=== PATIENT | male | born 1950 | race Caucasian/White ===

== ENCOUNTER → 2017-11-24 15:40 | Outpatient (CLI) | payer OTHER, SELFPAY ==
--- NOTE | 2017-11-24 | DI.US.S_ITS ---
PROCEDURE: US PERIPH VENOUS LOW EXTREM LT INDICATIONS: LEFT LEG SWELLING TECHNIQUE: Real-time imaging, as well as color and pulse Doppler interrogation, were performed of the lower extremity deep veins from the inguinal ligament to the popliteal fossa. COMPARISON: None. FINDINGS: The deep veins are normally compressible, and free of intraluminal thrombus. Color and pulse Doppler demonstrate normal phasic intraluminal flow. There is normal augmentation response to distal compression maneuver. IMPRESSION: No DVT found. Dictated by: Marko Amaral M.D. on 11/24/2017 at 16:51 Approved by: Marko Amaral M.D. on 11/24/2017 at 16:52
== END ==
PROVIDERS: Family Provider Family Medicine; PCP Family Medicine; Visit Provider Family Medicine
DX: M79.89 Other specified soft tissue disorders (principal)
CPT/HCPCS: 93971

== ENCOUNTER 2017-12-02 08:30 | Outpatient (RCR) | payer OTHER, SELFPAY ==
[2017-08-31 10:56] VITALS: BP 112/60; O2SAT 97; BMI 39.9
--- NOTE | 2017-08-31 12:48 | CR.IEVALNOTE ---
CR Initial Assessment Report 5.8.18 CABGx2, AVR PE FARZAD Lungs, DM, Pneumonia CR Cardiac Rehab Initial Assessment Start: 08/31/17 10:54 Freq: Status: Active Protocol: Document 08/31/17 10:56 [facility] (Rec: 08/31/17 11:16 [facility] [id number]) Cardiac Rehabilitation Exercise Risk Risk Moderate % 60 AICD No Pacemaker No Heart Rhythm NSR Right Arm Blood Pressure (90/60-120/80 mmHg) 112/60 Blood Pressure Method Manual Cuff/Auscultation BP Comment: 96/64 LEFT ARM Apical Resting Heart Rate: 71 Target Heart Rate: 91 Strength: Normal Pulse Rhythm: Regular Respiratory Effort Non-Labored Respiratory Depth Normal Pulse Oximetry (91-100 %) 97 Nasal Cannula No Cardiac Rehabilitation Nutrition Evaluation Recent Lipid Blood Test Yes Date Blood Test Drawn 09/01/16 Total Cholesterol 182 Triglycerides 119 HDL 47 LDL 111 Lipid Medications Yes Goal for Lipids REDUCE LDL AND TRIGLYCERIDES History of Diabetes Yes Type Type 2 Monitors Blood Glucose Yes Frequency 3X/DAY Diabetic Medications METFORMIN Diet Controlled Yes Date/Result of HgA1C 7.1 Goals FBS 80-110 Cardiac Rehabilitation Weight Management Plan Height 170.18 cm Weight 115.666 kg Body Mass Index (BMI) 39.9 Girth Measurement (in inches) (cm) 49.5 Patient Goal(s) Lose 1-2 of Girth Lose 5-10 lbs Body Weight BMI Goal of 19-25 Vitamins & Supplements Yes Use Occasionally Nutrition Evaluation Referral to Diabetes Education No Nurse/Patient Discussion Yes Diet Discussion REVIEWED MEAL PLAN Patient's Nutritional Goals CONTINUE HIS SLOW WEIGHT LOSS Education Primary Language [place] Hearing Ability Normal Visual Impairment No Limitations Visual Difficutly None Education on Intake Chest Pain Short of Breath Tobacco Use N/A Hx Hypertension No Goal of BP <130/80 Yes Medications Reconciled Yes CR Psychosocial Evaluation Goal GAIN CONFEDENCE IN GETTING BACK TO EXERCISE. 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 WENT TO SEE DR. MENDEZ FOR HIS DIABETES AND HE HEARD A MURMU . REFERRRED TO DR. WALDRON. HAD A ANGIO AT [facility] WHERE HE HAD 100%BLOCKAGE OF PDA. TO [facility] FOR AVR AND CABG X 2. LONG SURGERY IN HOSPITAL FOR 9 DAYS. Treatment Prescribed for Individual Yes Needs No Treatment Change Yes: Please Continue with Cardiopulmonary Rehabilitation as Ordered Date 08/31/17 Document 08/31/17 12:23 [facility] (Rec: 08/31/17 12:48 [facility] [id number]) Cardiac Rehabilitation Exercise Fall Risk History of Falling (Immediate or No Previous) Secondary Diagnosis (More Than 2 Medical Yes Diagnoses) Ambulatory Aid None/bed rest/nurse assist IV/Heparin Lock No Gait/Transferring Normal/bedrest/immobile Mental Status Oriented to own ability Score Total 15 Risk Level Low Fall Risk Action Implement [place] Fall Risk Precautions Comment Will still start with saucer under physioball and next to handrail. Assistive Devices None Akbar Activity Status Index 8.33 Home Exercise Yes Mode Comment: walking- neighborhood, [place] Duration Comment: 15-30 min Frequency Comment: daily Symptoms: Joint Pain Numbness Body Alignment Posture Good Posture Ambulation Assistive Device None Orthotic/Prosthetic Devices or Brace: No Comment R shoulder pain-only since surgery, RLL numbness from prior accident. Exercise TM METS 4.12 Angina with Exercise no Exercise Tolerance Good CR Pre Exercise Evaluation Orientation Self Pulse Check ADRI PRE Scale Exercise Safety Equipment Orientation Warm Up/Cool Down Patient Short-term Goal(s) Increase stamina to complete 40 min of cardio at 5 METS continuously and not go home to take a nap. Return to walking some hills around neighborhood in 4 weeks. Patient Detention Goal(s) Lose 1-2#/wk by changing exercise and nutrition habits. Return to cycling (mountain) in 12 weeks by performing HIIT on the [place]. CR Exercises Prescription Exercise Duration (minutes) 20 METs (resistance level) 4 Frequency 2x/wk RPE 11-14 Comment sternal precautions, no arms Exercise Duration (minutes) 20 METs (resistance level) 5 Frequency 2x/wk RPE 11-14 Pounds 4 Number of Reps 12 Number of Sets 2 Frequency 1x/wk RPE 13 Comment sternal precautions-light weight unilateral movements Band Resistance 3 Number of Reps 12 Number of Sets 1 Frequency 1x/wk RPE 13 Comment sternal precautions
[2017-09-29 09:44] VITALS: BP 112/60
--- NOTE | 2017-09-29 09:52 | CR.REVALNOTE ---
CABG X 2 07/27/17 CR Initial Assessment Report CR Cardiac Rehab Re-Assessment Start: 08/31/17 10:54 Freq: Status: Active Protocol: Document 09/29/17 09:44 [facility] (Rec: 09/29/17 09:52 [facility] [id number]) Cardiac Rehab Exercise Risk Re-Eval Dx: CABG X 2 07/27/17 Risk Moderate Heart Rhythm SR Right Arm Blood Pressure (90/60-120/80 mmHg) 112/60 Blood Pressure Method Manual Cuff/Auscultation Apical Resting Heart Rate: 73 Strength: Normal Pulse Rhythm: Regular Pulse Assessment Method Pulse Ox/Monitor Achieved Exercise Re-Evaluation Treadmill MET Goal NEW GOAL 10 METS RPE 15 Weights 4 Bands 4 Equipment Goals WANTS TO TRY NEW MACHINES, TO INCLUDE ROWER, CAROL AND ELLIPTICAL Number/Value UP WEIGHTS TO 5 % Improvement 137% ON TM, 113% ON NS. 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 ON BIKE AND RIDE Cardiac Rehab Nutrition Re-Eval Lipids Re-Drawn No History of Diabetes Yes Fasting Blood Glucose 99 Oral Agents METFORMIN 1000MG BID Insulin No Relationship to CAD Yes Weight 114.759 kg Progress to Weight Goal DOWN 2# Dietary Consult No Nurse/Patient Discussion Yes Nutrition Class Yes Dietary Goal verbalized by Patient Yes Education Tobacco Use N/A Hypertension HAS BEEN TRENDING DOWN Medications METOPROLOL 12.5 BID Progress to Goal HAS BEEN AT GOAL Medication Reconciled NO CHANGES REPORTED CR Psychosocial Re-Evaluation Progress to Goal CONFIDENCE HAS BEEN BUILDING AND IS LITERALLY SMILING THE ENTIRE TIME HE IS WORKING OUT Stress Managed YES Psych Consult No Stress Management Class Yes Uses Stress Management Skills Yes Coping Techniques Yes Relaxation Techniques Yes Positive Support Yes Note NO CHANGES CR Psychosocial Provider Eval Treatment Prescribed for Individual Yes Needs No Treatment Change Yes: Please Continue with Cardiopulmonary Rehabilitation as Ordered Date 09/29/17
[2017-12-02 08:59] VITALS: BMI 38.9
[2017-12-02 11:05] VITALS: BP 120/66
== END 2017-12-06 08:33 ==
LOC: CAR 08:30
PROVIDERS: Family Provider Family Medicine; PCP Family Medicine; Visit Provider Family Medicine
DX: Z95.1 Presence of aortocoronary bypass graft (principal)
CPT/HCPCS: 93798

== ENCOUNTER 2019-02-20 13:27 | Emergency (ER) | payer OTHER, SELFPAY ==
[2019-02-20] VITALS (13 sets, daily range): BP systolic 131–184; BP diastolic 60–86; PULSE 79–93; RESP 14–34; TEMP 36.1–37.2; O2SAT 78–98
--- NOTE | 2019-02-20 13:28 | DI.CT.S_ITS ---
PROCEDURE: CT HEAD/BRAIN WO CON INDICATIONS: Code Stroke TECHNIQUE: Noncontrast 4.5 mm thick angled axial sections acquired from the foramen magnum to the vertex, with coronal and sagittal reformats. For radiation dose reduction, the following was used: automated exposure control, adjustment of mA and/or kV according to patient size. COMPARISON: None. FINDINGS: Image quality: Excellent. CSF spaces: Basal cisterns are patent. No extra-axial fluid collections. Ventricles are normal in size and shape. Brain: No midline shift. No intracranial masses or hemorrhage. Singh-white matter interface is normal. Exactly at the midline extending posterior and inferior to the posterior genu of the corpus callosum is a curvilinear radiodensity which on sagittal reformatt imaging is isodense to the adjacent dural sinuses. The appearance is that of a relatively dense dural vein rather than organized thrombus at that site. More inferiorly within the pineal gland are several small calcifications Skull and face: Calvarium and visualized facial bones are intact, without suspicious lesions. Sinuses: Visualized sinuses and mastoids are clear. IMPRESSION: The brain parenchyma appears normal bilaterally, and no hemorrhage is found. The radiodensity discussed above at the midline below the posterior genu of the corpus callosum represents a prominent dural vein as a normal anatomic variant. The emergency room physician caring for the patient was called and the findings were discussed in detail. This occurred at 13:41 in the afternoon, and he reports that the current symptomatology is more likely post-seizure status of the patient then stroke. MR scanning may be warranted regardless. Note: Findings personally called to the emergency room physician caring for the patient at 13:41. Dictated by: Marko Amaral M.D. on 02/20/2019 at 13:41 Approved by: Marko Amaral M.D. on 02/20/2019 at 13:56
[2019-02-20 13:37] LABS: Add Manual Diff / Slide Review NO; Basophils Absolute Auto 0 /uL (0-100); Basophils Percent Auto 0.4 % (0-2); Eosinophils Absolute Auto 200 /uL (0-450); Eosinophils Percent Auto 2.4 % (2-4); Hemoglobin 16.9 g/dL (13.5-17.5); Lymphocytes Absolute Auto 2100 /uL (1100-4500); Lymphocytes Percent Auto 20.7 % (25-40); Mean Corpuscular HGB Conc 33.9 % (30-36); Mean Corpuscular Hemoglobin 30.7 PG (26-34); Mean Corpuscular Volume 90.6 fL (80-100); Monocytes Absolute Auto 1000 /uL (0-900); Monocytes Percent Auto 10.4 % (3-14); Neutrophils Absolute Auto 6600 /uL (1500-7000); Neutrophils Percent Auto 66.1 % (50-75); Platelet Count 215 X10^3/uL (150-400); Red Blood Cell Count 5.52 X10^6/uL (4.5-5.9); Red Cell Distribution Width 13.6 % (11.6-14.8)
--- NOTE | 2019-02-20 13:42 | ED.NEUROSD ---
HPI - Neuro Symptoms/Deficit General Chief Complaint: Neuro Symptoms/Deficit Stated Complaint: Code Stroke Time Seen by Provider: 02/20/19 13:27 Source: EMS Mode of arrival: EMS Limitations: altered mental status History of Present Illness HPI Narrative: 68-year-old male arrived by EMS for concerns of a potential stroke. Is reported that his last known normal was 30 minutes prior to arrival here in the ER. Patient unable to provide any HPI. The history was provided by EMS who stated that they were told that the patient was acting a little different this morning but was able to get up and walk around. His reported that he was sitting in his chair when his left leg started shaking in his right arm started shaking and he was looking up to the left. Unsure how long the symptoms lasted however EMS reports that he has been essentially unresponsive in the ambulance EN route to the ER. Blood sugars greater than 100. No other interventions provided by EMS other than IV. Related Data Home Medications Medication Instructions Recorded Confirmed aspirin 81 mg PO DAILY #0 08/04/16 02/20/19 atorvastatin [Lipitor] 40 mg PO DAILY #0 05/21/17 02/20/19 metformin 1,000 mg PO BID 02/20/19 02/20/19 Allergies Allergy/AdvReac Type Severity Reaction Status Date / Time Penicillins [PENICILLINS] Allergy Severe anaphylaxis Unverified 06/30/17 12:05 Review of Systems Review of Systems ROS Unobtainable: Unobtainable due to mental status/LOC Patient History Medical History Coronary artery disease (Acute) Surgical History S/P AVR (aortic valve replacement) (Acute ~07/27/17) S/P CABG x 2 (Acute ~07/27/17) Social History Smoking Status: Unknown if ever smoked Exam Initial Vital Signs Initial Vital Signs: Vital Signs Temperature 98.0 F 02/20/19 13:20 Pulse Rate 83 02/20/19 13:20 Respiratory Rate 34 H 02/20/19 13:20 Blood Pressure 181/86 H 02/20/19 13:20 Pulse Oximetry 78 L 02/20/19 13:20 Const General: well groomed Orientation: obtunded Limitations: altered mental status HENMT Head: normal to inspection and normocephalic Eyes Pupils: PERRL Resp Effort & Inspection: normal respiratory effort Auscultation: clear to auscultation bilaterally Cardio Rate: regular rate Rhythm: regular rhythm Heart Sounds: murmur GI Inspection: non-distended Palpation: soft Skin Lesions: no lesions Rashes: no rashes Neuro Other: Patient unresponsive Extrem General: normal to inspection and capillary refill normal Psych Appearance: grossly normal and well kempt Scores GCS David coma scale eye opening: None David coma scale verbal response: None Coleman coma scale motor response: None Coleman coma scale total score: 3 Course Orders Ordered: ED Orders 02/20/19 13:28 CT head/brain wo con Stat EKG-12 Lead Stat 02/20/19 13:33 Complete Blood Count AUTO DIFF Stat Comprehensive Metabolic Panel Stat Ethanol (ETOH) Stat Lipase Stat Partial Thromboplastin Time Stat Prolactin Stat Prothrombin Time INR Stat Troponin I Stat Sodium Chloride (Normal Saline 0.9%) 1,000 mls @ 125 mls/hr IV CONT GABRIELLE Last Infusion: 02/20/19 18:15 Dose: 0 mls/hr Documented by: Admin: 02/20/19 18:14 Dose: 125 mls/hr Documented by: Infusion: 02/20/19 18:14 Dose: 125 mls/hr Documented by: Admin: 02/20/19 13:55 Dose: 125 mls/hr Documented by: URI Sodium Chloride (Normal Saline 0.9%) 1,000 mls @ 125 mls/hr IV CONT GABRIELLE Discontinued Medications Levetiracetam 1,000 mg/ Sodium (Chloride) 110 mls @ 440 mls/hr IV NOW ONE Stop: 02/20/19 13:43 Last Admin: 02/20/19 14:14 Dose: 440 mls/hr Documented by: URI Lorazepam (Ativan) 2 mg IV NOW ONE Stop: 02/20/19 13:43 Last Admin: 02/20/19 13:56 Dose: 2 mg Documented by: URI Lorazepam (Ativan) 2 mg IV NOW ONE Stop: 02/20/19 18:13 Last Admin: 02/20/19 18:15 Dose: 2 mg Documented by: URI Vital Signs Vital signs: Vital Signs - 8 hr 02/20/19 13:20 02/20/19 14:08 02/20/19 14:34 Temperature 98.0 F 97 F L Pulse Rate 83 93 H 89 Respiratory Rate 34 H 20 15 Blood Pressure 181/86 H Blood Pressure [Right Arm] 145/66 H 137/72 Pulse Oximetry 78 L 02/20/19 15:05 02/20/19 16:06 02/20/19 16:30 Temperature Pulse Rate 84 83 87 Respiratory Rate 19 19 14 Blood Pressure Blood Pressure [Right Arm] 137/83 141/63 H 147/69 H Pulse Oximetry 96 94 02/20/19 18:07 02/20/19 18:40 Temperature 98.9 F Pulse Rate 89 85 Respiratory Rate 22 20 Blood Pressure Blood Pressure [Right Arm] 136/69 131/60 Pulse Oximetry MDM - Neuro Symptoms/Deficit Lab Data Attestation: I reviewed the patient's lab results. Result diagrams: 02/20/19 13:33 02/20/19 13:33 Labs: Lab Results 02/20/19 02/20/19 02/20/19 Range/Units 13:33 13:33 13:33 WBC 10.0 (4.5-11.0) X10^3/uL RBC 5.52 (4.5-5.9) X10^6/uL Hgb 16.9 (13.5-17.5) g/dL Hct 50.0 (41-53) % MCV 90.6 (80-100) fL MCH 30.7 (26-34) PG MCHC 33.9 (30-36) % RDW 13.6 (11.6-14.8) % Plt Count 215 (150-400) X10^3/uL Neut % (Auto) 66.1 (50-75) % Lymph % (Auto) 20.7 L (25-40) % [place] % (Auto) 10.4 (3-14) % Eos % (Auto) 2.4 (2-4) % Baso % (Auto) 0.4 (0-2) % Neut # (Auto) 6600 (0783-5624) /uL Lymph # (Auto) 2100 (4940-5866) /uL [place] # (Auto) 1000 H (0-900) /uL Eos # (Auto) 200 (0-450) /uL Baso # (Auto) 0 (0-100) /uL PT 11.2 (10.1-12.7) SECONDS INR 1.0 (0.9-1.3) APTT 30 (26.4-36.2) SECONDS Sodium 140 (137-145) mmol/L Potassium 4.6 (3.4-5.1) mmol/L Chloride 103 (98-107) mmol/L Carbon Dioxide 28 (22-32) mmol/L BUN 18 (9-20) mg/dL Creatinine 1.00 (0.66-1.25) mg/dL Estimated GFR > 60.0 (>60) mL/min BUN/Creatinine Ratio 18.0 (6-22) Glucose 144 H (80-110) mg/dL Calcium 10.1 (8.4-10.2) mg/dL Total Bilirubin 0.7 (0.2-1.3) mg/dL AST 24 (17-59) IU/L ALT 25 (<50) IU/L Alkaline Phosphatase 56 (38-126) U/L Troponin I (0.01-0.034) ng/mL Total Protein 7.6 (6.3-8.2) g/dL Albumin 4.7 (3.5-5.0) g/dL Globulin 2.9 (1.7-4.1) g/dL Albumin/Globulin Ratio 1.6 (1.0-2.8) Lipase (23-300) U/L Prolactin (3.7-17.9) ng/mL Ethyl Alcohol < 10 ( - 10) mg/dL 02/20/19 02/20/19 Range/Units 13:33 13:33 WBC (4.5-11.0) X10^3/uL RBC (4.5-5.9) X10^6/uL Hgb (13.5-17.5) g/dL Hct (41-53) % MCV (80-100) fL MCH (26-34) PG MCHC (30-36) % RDW (11.6-14.8) % Plt Count (150-400) X10^3/uL Neut % (Auto) (50-75) % Lymph % (Auto) (25-40) % [place] % (Auto) (3-14) % Eos % (Auto) (2-4) % Baso % (Auto) (0-2) % Neut # (Auto) (8774-9111) /uL Lymph # (Auto) (8568-9989) /uL [place] # (Auto) (0-900) /uL Eos # (Auto) (0-450) /uL Baso # (Auto) (0-100) /uL PT (10.1-12.7) SECONDS INR (0.9-1.3) APTT (26.4-36.2) SECONDS Sodium (137-145) mmol/L Potassium (3.4-5.1) mmol/L Chloride (98-107) mmol/L Carbon Dioxide (22-32) mmol/L BUN (9-20) mg/dL Creatinine (0.66-1.25) mg/dL Estimated GFR (>60) mL/min BUN/Creatinine Ratio (6-22) Glucose (80-110) mg/dL Calcium (8.4-10.2) mg/dL Total Bilirubin (0.2-1.3) mg/dL AST (17-59) IU/L ALT (<50) IU/L Alkaline Phosphatase (38-126) U/L Troponin I < 0.012 (0.01-0.034) ng/mL Total Protein (6.3-8.2) g/dL Albumin (3.5-5.0) g/dL Globulin (1.7-4.1) g/dL Albumin/Globulin Ratio (1.0-2.8) Lipase 134 (23-300) U/L Prolactin 21.7 H (3.7-17.9) ng/mL Ethyl Alcohol ( - 10) mg/dL Point of Care Testing Glucose POC [address] scan - head: Radiologist's impression: [address] [address] [address] Scan Report Signed Patient: Elbert Lu RMR#: [id number] : 9Acct:[id number] Age/Sex: 68 / MDate of Service: 02/20/19 Loc: ED Accession Number: [id number] Procedure: CT head/brain wo con Ordering Provider: Juan Brody D.O. PROCEDURE: CT HEAD/BRAIN WO CON INDICATIONS: Code Stroke TECHNIQUE: Noncontrast 4.5 mm thick angled axial sections acquired from the foramen magnum to the vertex, with coronal and sagittal reformats. For radiation dose reduction, the following was used: automated exposure control, adjustment of mA and/or kV according to patient size. COMPARISON: None. FINDINGS: Image quality: Excellent. CSF spaces: Basal cisterns are patent. No extra-axial fluid collections. Ventricles are normal in size and shape. Brain: No midline shift. No intracranial masses or hemorrhage. Singh-white matter interface is normal. Exactly at the midline extending posterior and inferior to the posterior genu of the corpus callosum is a curvilinear radiodensity which on sagittal reformatt imaging is isodense to the adjacent dural sinuses. The appearance is that of a relatively dense dural vein rather than organized thrombus at that site. More inferiorly within the pineal gland are several small calcifications Skull and face: Calvarium and visualized facial bones are intact, without suspicious lesions. Sinuses: Visualized sinuses and mastoids are clear. IMPRESSION: The brain parenchyma appears normal bilaterally, and no hemorrhage is found. The radiodensity discussed above at the midline below the posterior genu of the corpus callosum represents a prominent dural vein as a normal anatomic variant. The emergency room physician caring for the patient was called and the findings were discussed in detail. This occurred at 13:41 in the afternoon, and he reports that the current symptomatology is more likely post-seizure status of the patient then stroke. MR scanning may be warranted regardless. Note: Findings personally called to the emergency room physician caring for the patient at 13:41. Dictated by: Marko Amaral M.D. on 02/20/2019 at 13:41 Approved by: Marko Amaral M.D. on 02/20/2019 at 13:56 ECG Data Attestation: I personally reviewed and interpreted this ECG as follows: Prior ECG tracings: not available for review Interpretation: Sinus rhythm Ventricular rate 89 Left axis deviation QRS 127 milliseconds Normal QTC MDM Narrative Medical decision making narrative: Patient arrived initially as a code stroke with last known normal 30 minutes prior to arrival. Patient went directly to head CT. Upon arrival and when I went in to evaluate the patient he had what was consistent with a generalized tonic-clonic seizure. This lasted approximately 1 minute. Did resolve on its own however he was given 2 mg of Ativan afterwards. He was also given 1 g of Keppra. Upon discussion with the [facility] doctor who talk with the accepting neurologist they recommended giving another 1g of Keppra. He was given a total of 2 g of Keppra. His eventually arrived and stated that the patient slept in this morning which is not normal for him. She thought that he does was not acting like himself. He was sitting on the couch when he started shaking his left leg and his left arm. She also thought that he was looking up into the left. Given the patient's history and physical exam provided by his I do suspect that this was seizure-like activity and not stroke. He was not back to normal in between that seizure activity in the 1 that was witness here in the ER. During his time here in the emergency department he did start to become more arousable. He became very agitated. Making aggressive movements towards the staff saying that he wanted to sit up that he was in pain. He would not say more than that. I did offer to raise the back of the bed but 20 May could not stand up. He did not want this. He was pulling at his EKG leads and also his IV. He was given another 2 mg of Ativan and then 2.5 mg of Haldol which did make him more calm. His was at bedside during this trying to calm him as well. I did discuss the case with [facility] he was able to locate a bed and accepting physician Dr. Hawkins at [facility]. Patient is stable for transport. His family was made aware of the need for transport. Discharge Plan Departure Patient Disposition: [facility] Clinical Impression: Status epilepticus Prescriptions: No Action aspirin 81 MG tablet,delayed release (DR/EC) 81 mg PO DAILY Qty: 0 RF: 0 atorvastatin [Lipitor] 40 MG tablet 40 mg PO DAILY Qty: 0 RF: 0 metformin 1,000 mg Tablet 1,000 mg PO BID RF: 0 Referrals: Kostas Ybarra MD [Primary Care Provider] -
[2019-02-20 13:44] LABS: Prothrombin Time 11.2 SECONDS (10.1-12.7)
[2019-02-20 13:47] LABS: PTT Partial Thromboplastin Tim 30 SECONDS (26.4-36.2)
[2019-02-20 13:48] LABS: Lipase 134 U/L (23-300)
[2019-02-20 13:50] LABS: Alanine Aminotransferase 25 IU/L (<50); Albumin 4.7 g/dL (3.5-5.0); Albumin Globulin Ratio 1.6 (1.0-2.8); Alkaline Phosphatase 56 U/L (38-126); Aspartate Aminotransferase 24 IU/L (17-59); Bilirubin Total 0.7 mg/dL (0.2-1.3); Blood Urea Nitrogen 18 mg/dL (9-20); Calcium 10.1 mg/dL (8.4-10.2); Carbon Dioxide 28 mmol/L (22-32); Chloride 103 mmol/L (98-107); Estimated Glomerular Filt Rate > 60.0 mL/min (>60); Ethanol (ETOH) < 10 mg/dL; Globulin 2.9 g/dL (1.7-4.1); Glucose 144 mg/dL (80-110); HEMOLYSIS < 15 (0-50); Potassium 4.6 mmol/L (3.4-5.1); Sodium 140 mmol/L (137-145); Total Protein 7.6 g/dL (6.3-8.2)
[2019-02-20] MEDS: LORazepam 2 MG/ML INJ (13:54)
[2019-02-20] MEDS: SODIUM CHLORIDE 0.9% 1,000 ML 125 ML IV ×3 (13:55→20:00)
[2019-02-20] MEDS: LORazepam 2 MG/ML INJ IV ×3 (13:56→19:46)
[2019-02-20 14:01] LABS: Troponin I < 0.012 ng/mL (0.01-0.034)
--- NOTE | 2019-02-20 14:04 | PC.NURSE ---
02 4 l nc/ placed sat 97;98% at bedside.
[2019-02-20 14:07] LABS: Prolactin 21.7 ng/mL (3.7-17.9)
[2019-02-20] MEDS: levETIRAcetam 1,000 MG in SODIUM CHLORIDE 0.9% 100 ML 440 ML IV ×2 (14:14→19:15)
--- NOTE | 2019-02-20 14:20 | PC.NURSE ---
1328-pt arrival to ct/ md with pt and rn/ monitor. pt lethargic, lower lip quivering/ gazing to right. seems to be aware when name called, then looks away. 1335 seizure noted lasting about 4 min, face shaking/ arms, md at side/ nasal trumpet placed by md, non rebreather mask, sx. 1350 pt more relaxed, at bedside. vs as noted. sats 99%, md changed pt 02 to 4 liters nc. 1415 pt changed to 2 l nc due to sats 99% cont sleepy. at side. keppra running iv
--- NOTE | 2019-02-20 18:05 | PC.NURSE ---
1730, pt trying to get out of bed, trying to kick self out of bed/ pulling at iv/ monitor leads, dr. vargas at bedside/ rx ordered. ativan 1 mg, then another ativan 1 mg, continues to be restless and grabbing at staff and kicking/ haldol ordered by . pt at 1800, finally settled down, sleeping. at side.vss.
[2019-02-20] MEDS: HALOPERIDOL 5 MG/ML VIAL (18:13)
[2019-02-20] MEDS: HALOPERIDOL 5 MG/ML VIAL 2.5 MG IV (19:24)
[2019-02-20] MEDS: MIDAZOLAM 50 MG in DEXTROSE 5% IN WATER 250 ML 11.856 ML IV (20:25)
[2019-02-20] MEDS: MIDAZOLAM 2 MG/2 ML VIAL (20:26)
[2019-02-20] MEDS: THIAMINE 200 MG/2 ML VIAL 100 MG IV (21:22)
[2019-02-21] VITALS (16 sets, daily range): BP systolic 102–144; BP diastolic 51–104; PULSE 70–97; RESP 15–22; TEMP 36.6–37.4; O2SAT 95–100
[2019-02-21 01:13] LABS: Add Manual Diff / Slide Review NO; Basophils Absolute Auto 100 /uL (0-100); Basophils Percent Auto 0.5 % (0-2); Eosinophils Absolute Auto 0 /uL (0-450); Eosinophils Percent Auto 0.4 % (2-4); Hematocrit 46.6 % (41-53); Hemoglobin 15.8 g/dL (13.5-17.5); Lymphocytes Absolute Auto 1500 /uL (1100-4500); Lymphocytes Percent Auto 11.6 % (25-40); Mean Corpuscular Hemoglobin 30.3 PG (26-34); Mean Corpuscular Volume 89.1 fL (80-100); Monocytes Absolute Auto 1300 /uL (0-900); Monocytes Percent Auto 10.1 % (3-14); Neutrophils Absolute Auto 9800 /uL (1500-7000); Neutrophils Percent Auto 77.4 % (50-75); Platelet Count 193 X10^3/uL (150-400); Red Blood Cell Count 5.23 X10^6/uL (4.5-5.9); Red Cell Distribution Width 13.2 % (11.6-14.8); White Blood Cell Count 12.7 X10^3/uL (4.5-11.0)
[2019-02-21 01:22] LABS: BUN Creatinine Ratio 16.3 (6-22); Blood Urea Nitrogen 13 mg/dL (9-20); Carbon Dioxide 28 mmol/L (22-32); Chloride 105 mmol/L (98-107); Estimated Glomerular Filt Rate > 60.0 mL/min (>60); Glucose 110 mg/dL (80-110); HEMOLYSIS 41 (0-50); Potassium 4.4 mmol/L (3.4-5.1); Sodium 140 mmol/L (137-145)
--- NOTE | 2019-02-21 01:35 | PC.NURSE ---
0135 agitation continues despite midazolam, re-eval by MD Valle, pt continues to pull at equipment, remains in soft restraints, not following commands, remains in NSR on monitor, wood draining clear yellow urine, RN remains bedside for pt safety
--- NOTE | 2019-02-21 01:52 | DI.CT.S_ITS ---
PROCEDURE: CT HEAD/BRAIN WO CON INDICATIONS: neurologic change TECHNIQUE: Noncontrast 4.5 mm thick angled axial sections acquired from the foramen magnum to the vertex, with coronal and sagittal reformats. For radiation dose reduction, the following was used: automated exposure control, adjustment of mA and/or kV according to patient size. COMPARISON: [facility], CT, CT HEAD/BRAIN WO CON, 02/20/2019, 13:25. FINDINGS: Image quality: Study degraded by patient motion artifact. CSF spaces: Basal cisterns are patent. No extra-axial fluid collections. The ventricles are symmetric in size and shape. Brain: No intracranial bleeds or masses. There is moderate cerebral volume loss for age, with resultant ventricular and sulcal prominence. There are periventricular and deep white matter chronic small vessel ischemic changes. There is intracranial internal carotid artery atherosclerosis. Skull and face: Calvarium and visualized facial bones appear intact, without suspicious lesions. Sinuses: Visualized sinuses and mastoids are clear. IMPRESSION: CT head without acute intracranial abnormalities. Stable age-related senescent changes and sequela of chronic small vessel ischemic disease. No significant discrepancy with the night shift manager radiology preliminary report. Dictated by: Tang Man M.D. on 02/21/2019 at 7:54 Approved by: Tang Man M.D. on 02/21/2019 at 7:55
[2019-02-21 01:55] LABS: UR Morphine/Opiate cutoff 300 Negative (Negative); Ur Creatinine Normal (Normal); Ur Specific Gravity Normal (Normal); Urine Amphetamines Negative (Negative); Urine Barbiturates Negative (Negative); Urine Benzodiazepines Positive (Negative); Urine Cocaine Negative (Negative); Urine MDMA Negative (Negative); Urine Methadone Negative (Negative); Urine Methamphetamines Negative (Negative); Urine Oxycodone Negative (Negative); Urine Phencyclidine Negative (Negative); Urine Tetrahydrocannabinol Negative (Negative); Urine Tricyclic Antidepressant Negative (Negative); Urine pH Normal (Normal)
[2019-02-21] MEDS: diazePAM 10 MG/2 ML SYRINGE IV (02:10)
[2019-02-21] MEDS: OLANZapine 10 MG VIAL 20 MG IM (02:55)
--- NOTE | 2019-02-21 05:31 | PC.NURSE ---
Pt has required 1:1 nursing care all night due to agitation and complexity of care. Pt moved to high-vis room and sitter requested for day shift for patient safety. He continuously attempted to sit up, rolls around in bed, and slides to the bottom of the bed. High risk for falls. Pt moves all extremities, opens eyes spontaneously. No apropriate verbal response. RT Francois is now sitting at bedside for safety.
--- NOTE | 2019-02-21 07:05 | PC.NURSE ---
Pt is finally sleeping peacefully, respirations even/unlabored.
--- NOTE | 2019-02-21 08:57 | PC.NURSE ---
RN recieved phone call from Carol Ann at [facility], asking if a sitter is necessary. RN advises Carol Ann of cambative nature of Pt last noc, sitter advised.
--- NOTE | 2019-02-21 12:52 | PC.NURSE ---
Attempted to get bed at [facility] in [place] but no beds at this time, Luis F will call back for a bed opening at [facility]
[2019-02-21] MEDS: SODIUM CHLORIDE 0.9% 1,000 ML 125 ML IV (15:00)
[2019-02-21] MEDS: levETIRAcetam 1,000 MG in SODIUM CHLORIDE 0.9% 100 ML 440 ML IV (15:00)
--- NOTE | 2019-02-21 16:09 | PC.NURSE ---
dr. vargas speaking with lea wu. about pt.
[2019-02-21 18:52] LABS: Add Manual Diff / Slide Review NO; Basophils Absolute Auto 100 /uL (0-100); Basophils Percent Auto 0.6 % (0-2); Eosinophils Absolute Auto 200 /uL (0-450); Eosinophils Percent Auto 1.7 % (2-4); Hematocrit 45.9 % (41-53); Hemoglobin 15.4 g/dL (13.5-17.5); Lymphocytes Absolute Auto 2000 /uL (1100-4500); Lymphocytes Percent Auto 19.3 % (25-40); Mean Corpuscular HGB Conc 33.6 % (30-36); Mean Corpuscular Hemoglobin 30.3 PG (26-34); Mean Corpuscular Volume 90.1 fL (80-100); Monocytes Absolute Auto 1300 /uL (0-900); Monocytes Percent Auto 12.3 % (3-14); Neutrophils Absolute Auto 6800 /uL (1500-7000); Neutrophils Percent Auto 66.1 % (50-75); Platelet Count 182 X10^3/uL (150-400); Red Cell Distribution Width 13.5 % (11.6-14.8); White Blood Cell Count 10.3 X10^3/uL (4.5-11.0)
[2019-02-21 19:26] LABS: BUN Creatinine Ratio 17.1 (6-22); Blood Urea Nitrogen 12 mg/dL (9-20); Carbon Dioxide 27 mmol/L (22-32); Chloride 108 mmol/L (98-107); Creatine Kinase 382 U/L (55-170); Estimated Glomerular Filt Rate > 60.0 mL/min (>60); Glucose 99 mg/dL (80-110); HEMOLYSIS < 15 (0-50); Potassium 3.7 mmol/L (3.4-5.1); Sodium 141 mmol/L (137-145)
--- NOTE | 2019-02-21 19:42 | ED.NEUROSD ---
HPI - Neuro Symptoms/Deficit General Chief Complaint: Neuro Symptoms/Deficit Stated Complaint: Code Stroke Time Seen by Provider: 02/20/19 13:27 Source: EMS Mode of arrival: EMS Limitations: altered mental status Related Data Home Medications Medication Instructions Recorded Confirmed aspirin 81 mg PO DAILY #0 08/04/16 02/20/19 atorvastatin [Lipitor] 40 mg PO DAILY #0 05/21/17 02/20/19 metformin 1,000 mg PO BID 02/20/19 02/20/19 Allergies Allergy/AdvReac Type Severity Reaction Status Date / Time Penicillins [PENICILLINS] Allergy Severe anaphylaxis Unverified 06/30/17 12:05 Patient History Medical History Coronary artery disease (Acute) Surgical History S/P AVR (aortic valve replacement) (Acute ~07/27/17) S/P CABG x 2 (Acute ~07/27/17) Social History Smoking Status: Unknown if ever smoked Exam Initial Vital Signs Initial Vital Signs: Vital Signs Temperature 98.0 F 02/20/19 13:20 Pulse Rate 83 02/20/19 13:20 Respiratory Rate 34 H 02/20/19 13:20 Blood Pressure 181/86 H 02/20/19 13:20 Pulse Oximetry 78 L 02/20/19 13:20 Course Orders Ordered: ED Orders 02/21/19 18:42 Basic Metabolic Panel Stat Complete Blood Count AUTO DIFF Stat Creatine Kinase Stat Sodium Chloride (Normal Saline 0.9%) 1,000 mls @ 125 mls/hr IV CONT GABRIELLE Last Infusion: 02/20/19 18:15 Dose: 0 mls/hr Documented by: Admin: 02/20/19 18:14 Dose: 125 mls/hr Documented by: Infusion: 02/20/19 18:14 Dose: 125 mls/hr Documented by: Admin: 02/20/19 13:55 Dose: 125 mls/hr Documented by: URI Sodium Chloride (Normal Saline 0.9%) 1,000 mls @ 125 mls/hr IV CONT GABRIELLE Last Infusion: 02/21/19 05:39 Dose: 125 mls/hr Documented by: Admin: 02/20/19 20:00 Dose: 125 mls/hr Documented by: LUCRECIA Midazolam HCl 50 mg/ Dextrose 260 mls @ 11.856 mls/hr IV TITRATE GABRIELLE; Protocol Last Titration: 02/21/19 02:57 Dose: 0 mg/kg/hr, 0 mls/hr Documented by: Titration: 02/20/19 21:06 Dose: 0.03 mg/kg/hr, 20 mls/hr Documented by: Titration: 02/20/19 20:52 Dose: 0.03 mg/kg/hr, 15 mls/hr Documented by: Admin: 02/20/19 20:25 Dose: 0.02 mg/kg/hr, 11.856 mls/hr Documented by: SOO Midazolam HCl 50 mg/ Dextrose 250 mls @ 20 mls/hr IV TITRATE GABRIELLE; Protocol Sodium Chloride (Normal Saline 0.9%) 1,000 mls @ 125 mls/hr IV CONT GABRIELLE Last Admin: 02/21/19 15:00 Dose: 125 mls/hr Documented by: DIANA Discontinued Medications Diazepam (Valium) 10 mg IV NOW ONE Stop: 02/21/19 01:52 Last Admin: 02/21/19 02:10 Dose: 10 mg Documented by: LUCRECIA Haloperidol (Haldol) 2.5 mg IV NOW ONE Stop: 02/20/19 19:09 Last Admin: 02/20/19 19:24 Dose: 2.5 mg Documented by: LUCRECIA Levetiracetam 1,000 mg/ Sodium (Chloride) 110 mls @ 440 mls/hr IV NOW ONE Stop: 02/20/19 13:43 Last Infusion: 02/20/19 15:00 Dose: 0 mls/hr Documented by: Admin: 02/20/19 14:14 Dose: 440 mls/hr Documented by: URI Levetiracetam 1,000 mg/ Sodium (Chloride) 110 mls @ 440 mls/hr IV NOW ONE Stop: 02/20/19 18:55 Last Infusion: 02/20/19 19:45 Dose: 0 mls/hr Documented by: Admin: 02/20/19 19:15 Dose: 440 mls/hr Documented by: URI Levetiracetam 1,000 mg/ Sodium (Chloride) 110 mls @ 440 mls/hr IV NOW ONE Stop: 02/21/19 14:02 Last Infusion: 02/21/19 15:20 Dose: 0 mls/hr Documented by: Admin: 02/21/19 15:00 Dose: 440 mls/hr Documented by: DIANA Lorazepam (Ativan) 2 mg IV NOW ONE Stop: 02/20/19 13:43 Last Admin: 02/20/19 13:56 Dose: 2 mg Documented by: URI Lorazepam (Ativan) 2 mg IV NOW ONE Stop: 02/20/19 18:13 Last Admin: 02/20/19 18:15 Dose: 2 mg Documented by: URI Lorazepam (Ativan) 2 mg IV NOW ONE Stop: 02/20/19 19:42 Last Admin: 02/20/19 19:46 Dose: 2 mg Documented by: LUCRECIA Olanzapine (Zyprexa) 20 mg IM NOW ONE Stop: 02/21/19 02:35 Last Admin: 02/21/19 02:55 Dose: 10 mg Documented by: LUCRECIA Thiamine HCl (Vitamin B-1) 100 mg IV NOW ONE Stop: 02/20/19 19:51 Last Admin: 02/20/19 21:22 Dose: 100 mg Documented by: LUCRECIA Vital Signs Vital signs: Vital Signs - 8 hr 02/21/19 11:45 02/21/19 12:54 02/21/19 13:52 Temperature 98.1 F 99.3 F Pulse Rate 78 85 97 H Respiratory Rate 18 16 Blood Pressure [Right Arm] 115/68 114/75 127/88 Pulse Oximetry 98 99 97 02/21/19 15:01 02/21/19 19:07 Temperature 98.6 F 98.5 F Pulse Rate 79 70 Respiratory Rate 16 Blood Pressure [Right Arm] 110/70 102/62 Pulse Oximetry 100 95 MDM - Neuro Symptoms/Deficit Lab Data Result diagrams: 02/21/19 18:42 02/21/19 18:42 Labs: Lab Results 02/20/19 02/20/19 02/20/19 Range/Units 13:33 13:33 13:33 WBC 10.0 (4.5-11.0) X10^3/uL RBC 5.52 (4.5-5.9) X10^6/uL Hgb 16.9 (13.5-17.5) g/dL Hct 50.0 (41-53) % MCV 90.6 (80-100) fL MCH 30.7 (26-34) PG MCHC 33.9 (30-36) % RDW 13.6 (11.6-14.8) % Plt Count 215 (150-400) X10^3/uL Neut % (Auto) 66.1 (50-75) % Lymph % (Auto) 20.7 L (25-40) % [place] % (Auto) 10.4 (3-14) % Eos % (Auto) 2.4 (2-4) % Baso % (Auto) 0.4 (0-2) % Neut # (Auto) 6600 (9443-3515) /uL Lymph # (Auto) 2100 (3941-2638) /uL [place] # (Auto) 1000 H (0-900) /uL Eos # (Auto) 200 (0-450) /uL Baso # (Auto) 0 (0-100) /uL PT 11.2 (10.1-12.7) SECONDS INR 1.0 (0.9-1.3) APTT 30 (26.4-36.2) SECONDS Sodium 140 (137-145) mmol/L Potassium 4.6 (3.4-5.1) mmol/L Chloride 103 (98-107) mmol/L Carbon Dioxide 28 (22-32) mmol/L BUN 18 (9-20) mg/dL Creatinine 1.00 (0.66-1.25) mg/dL Estimated GFR > 60.0 (>60) mL/min BUN/Creatinine Ratio 18.0 (6-22) Glucose 144 H (80-110) mg/dL Calcium 10.1 (8.4-10.2) mg/dL Total Bilirubin 0.7 (0.2-1.3) mg/dL AST 24 (17-59) IU/L ALT 25 (<50) IU/L Alkaline Phosphatase 56 (38-126) U/L Total Creatine Kinase (55-170) U/L Troponin I (0.01-0.034) ng/mL Total Protein 7.6 (6.3-8.2) g/dL Albumin 4.7 (3.5-5.0) g/dL Globulin 2.9 (1.7-4.1) g/dL Albumin/Globulin Ratio 1.6 (1.0-2.8) Lipase (23-300) U/L Prolactin (3.7-17.9) ng/mL U Morph 300 ng/mL cutoff (Negative) Ur Oxycodone Screen (Negative) Urine Methadone Screen (Negative) Ur Barbiturates Screen (Negative) U Tricyclic Antidepress (Negative) Ur Phencyclidine Scrn (Negative) Ur Amphetamines Screen (Negative) U Methamphetamines Scrn (Negative) Ur MDMA Scrn (Ecstasy) (Negative) U Benzodiazepines Scrn (Negative) Urine Cocaine Screen (Negative) U Marijuana (THC) Screen (Negative) Ethyl Alcohol < 10 ( - 10) mg/dL 02/20/19 02/20/19 02/21/19 Range/Units 13:33 13:33 00:56 WBC (4.5-11.0) X10^3/uL RBC (4.5-5.9) X10^6/uL Hgb (13.5-17.5) g/dL Hct (41-53) % MCV (80-100) fL MCH (26-34) PG MCHC (30-36) % RDW (11.6-14.8) % Plt Count (150-400) X10^3/uL Neut % (Auto) (50-75) % Lymph % (Auto) (25-40) % [place] % (Auto) (3-14) % Eos % (Auto) (2-4) % Baso % (Auto) (0-2) % Neut # (Auto) (4378-7585) /uL Lymph # (Auto) (4076-6193) /uL [place] # (Auto) (0-900) /uL Eos # (Auto) (0-450) /uL Baso # (Auto) (0-100) /uL PT (10.1-12.7) SECONDS INR (0.9-1.3) APTT (26.4-36.2) SECONDS Sodium (137-145) mmol/L Potassium (3.4-5.1) mmol/L Chloride (98-107) mmol/L Carbon Dioxide (22-32) mmol/L BUN (9-20) mg/dL Creatinine (0.66-1.25) mg/dL Estimated GFR (>60) mL/min BUN/Creatinine Ratio (6-22) Glucose (80-110) mg/dL Calcium (8.4-10.2) mg/dL Total Bilirubin (0.2-1.3) mg/dL AST (17-59) IU/L ALT (<50) IU/L Alkaline Phosphatase (38-126) U/L Total Creatine Kinase (55-170) U/L Troponin I < 0.012 (0.01-0.034) ng/mL Total Protein (6.3-8.2) g/dL Albumin (3.5-5.0) g/dL Globulin (1.7-4.1) g/dL Albumin/Globulin Ratio (1.0-2.8) Lipase 134 (23-300) U/L Prolactin 21.7 H (3.7-17.9) ng/mL U Morph 300 ng/mL cutoff Negative (Negative) Ur Oxycodone Screen Negative (Negative) Urine Methadone Screen Negative (Negative) Ur Barbiturates Screen Negative (Negative) U Tricyclic Antidepress Negative (Negative) Ur Phencyclidine Scrn Negative (Negative) Ur Amphetamines Screen Negative (Negative) U Methamphetamines Scrn Negative (Negative) Ur MDMA Scrn (Ecstasy) Negative (Negative) U Benzodiazepines Scrn Positive H (Negative) Urine Cocaine Screen Negative (Negative) U Marijuana (THC) Screen Negative (Negative) Ethyl Alcohol ( - 10) mg/dL 02/21/19 02/21/19 02/21/19 Range/Units 01:05 01:05 18:42 WBC 12.7 H 10.3 (4.5-11.0) X10^3/uL RBC 5.23 5.10 (4.5-5.9) X10^6/uL Hgb 15.8 15.4 (13.5-17.5) g/dL Hct 46.6 45.9 (41-53) % MCV 89.1 90.1 (80-100) fL MCH 30.3 30.3 (26-34) PG MCHC 34.0 33.6 (30-36) % RDW 13.2 13.5 (11.6-14.8) % Plt Count 193 182 (150-400) X10^3/uL Neut % (Auto) 77.4 H 66.1 (50-75) % Lymph % (Auto) 11.6 L 19.3 L (25-40) % [place] % (Auto) 10.1 12.3 (3-14) % Eos % (Auto) 0.4 L 1.7 L (2-4) % Baso % (Auto) 0.5 0.6 (0-2) % Neut # (Auto) 9800 H 6800 (4730-7866) /uL Lymph # (Auto) 1500 2000 (0715-9077) /uL [place] # (Auto) 1300 H 1300 H (0-900) /uL Eos # (Auto) 0 200 (0-450) /uL Baso # (Auto) 100 100 (0-100) /uL PT (10.1-12.7) SECONDS INR (0.9-1.3) APTT (26.4-36.2) SECONDS Sodium 140 (137-145) mmol/L Potassium 4.4 (3.4-5.1) mmol/L Chloride 105 (98-107) mmol/L Carbon Dioxide 28 (22-32) mmol/L BUN 13 (9-20) mg/dL Creatinine 0.80 (0.66-1.25) mg/dL Estimated GFR > 60.0 (>60) mL/min BUN/Creatinine Ratio 16.3 (6-22) Glucose 110 (80-110) mg/dL Calcium 9.0 (8.4-10.2) mg/dL Total Bilirubin (0.2-1.3) mg/dL AST (17-59) IU/L ALT (<50) IU/L Alkaline Phosphatase (38-126) U/L Total Creatine Kinase (55-170) U/L Troponin I (0.01-0.034) ng/mL Total Protein (6.3-8.2) g/dL Albumin (3.5-5.0) g/dL Globulin (1.7-4.1) g/dL Albumin/Globulin Ratio (1.0-2.8) Lipase (23-300) U/L Prolactin (3.7-17.9) ng/mL U Morph 300 ng/mL cutoff (Negative) Ur Oxycodone Screen (Negative) Urine Methadone Screen (Negative) Ur Barbiturates Screen (Negative) U Tricyclic Antidepress (Negative) Ur Phencyclidine Scrn (Negative) Ur Amphetamines Screen (Negative) U Methamphetamines Scrn (Negative) Ur MDMA Scrn (Ecstasy) (Negative) U Benzodiazepines Scrn (Negative) Urine Cocaine Screen (Negative) U Marijuana (THC) Screen (Negative) Ethyl Alcohol ( - 10) mg/dL 02/21/19 Range/Units 18:42 WBC (4.5-11.0) X10^3/uL RBC (4.5-5.9) X10^6/uL Hgb (13.5-17.5) g/dL Hct (41-53) % MCV (80-100) fL MCH (26-34) PG MCHC (30-36) % RDW (11.6-14.8) % Plt Count (150-400) X10^3/uL Neut % (Auto) (50-75) % Lymph % (Auto) (25-40) % [place] % (Auto) (3-14) % Eos % (Auto) (2-4) % Baso % (Auto) (0-2) % Neut # (Auto) (6793-0702) /uL Lymph # (Auto) (1321-9949) /uL [place] # (Auto) (0-900) /uL Eos # (Auto) (0-450) /uL Baso # (Auto) (0-100) /uL PT (10.1-12.7) SECONDS INR (0.9-1.3) APTT (26.4-36.2) SECONDS Sodium 141 (137-145) mmol/L Potassium 3.7 (3.4-5.1) mmol/L Chloride 108 H (98-107) mmol/L Carbon Dioxide 27 (22-32) mmol/L BUN 12 (9-20) mg/dL Creatinine 0.70 (0.66-1.25) mg/dL Estimated GFR > 60.0 (>60) mL/min BUN/Creatinine Ratio 17.1 (6-22) Glucose 99 (80-110) mg/dL Calcium 9.0 (8.4-10.2) mg/dL Total Bilirubin (0.2-1.3) mg/dL AST (17-59) IU/L ALT (<50) IU/L Alkaline Phosphatase (38-126) U/L Total Creatine Kinase 382 H (55-170) U/L Troponin I (0.01-0.034) ng/mL Total Protein (6.3-8.2) g/dL Albumin (3.5-5.0) g/dL Globulin (1.7-4.1) g/dL Albumin/Globulin Ratio (1.0-2.8) Lipase (23-300) U/L Prolactin (3.7-17.9) ng/mL U Morph 300 ng/mL cutoff (Negative) Ur Oxycodone Screen (Negative) Urine Methadone Screen (Negative) Ur Barbiturates Screen (Negative) U Tricyclic Antidepress (Negative) Ur Phencyclidine Scrn (Negative) Ur Amphetamines Screen (Negative) U Methamphetamines Scrn (Negative) Ur MDMA Scrn (Ecstasy) (Negative) U Benzodiazepines Scrn (Negative) Urine Cocaine Screen (Negative) U Marijuana (THC) Screen (Negative) Ethyl Alcohol ( - 10) mg/dL Point of Care Testing Glucose POC 92 Discharge Plan Departure Patient Disposition: [facility] Clinical Impression: Status epilepticus Prescriptions: No Action aspirin 81 MG tablet,delayed release (DR/EC) 81 mg PO DAILY Qty: 0 RF: 0 atorvastatin [Lipitor] 40 MG tablet 40 mg PO DAILY Qty: 0 RF: 0 metformin 1,000 mg Tablet 1,000 mg PO BID RF: 0 Referrals: Kostas Ybarra MD [Primary Care Provider] -
--- NOTE | 2019-02-21 19:51 | PC.NURSE ---
Called karen Lima at [place] [phone] to give report.
== END 2019-02-21 20:38 | disposition short-term general hospital (02) ==
PROVIDERS: Emergency Medicine; Emergency Provider Emergency Medicine; Family Provider Family Medicine; PCP Family Medicine
DX: G40.901 Epilepsy, unspecified, not intractable, with status epilepticus (principal); R79.89 Other specified abnormal findings of blood chemistry
CPT/HCPCS: 36415; 70450; 80048; 80053; 80305; 80320; 82550; 82962; 83690; 84146; 84484; 85025; 85610; 85730; 93005; 96361; 96365; 96366; 96367; 96372; 96375; 96376; 99285; 99291; J1630; J1953; J2060; J2250; J3360; S0166

== ENCOUNTER → 2019-07-12 12:52 | Outpatient (CLI) | payer OTHER, SELFPAY ==
--- NOTE | 2019-07-12 | DI.RAD.S_ITS ---
PROCEDURE: XR CLAVICLE LT INDICATIONS: UPPER LEFT CHEST WALL PAIN AND CLAVICULAR PAIN TECHNIQUE: 2 views of the clavicle were acquired. COMPARISON: None. FINDINGS: Bones: No acute fractures or dislocations. Mild degenerative changes of the left acromioclavicular joint. Coracoclavicular and acromioclavicular intervals are maintained. No suspicious bony lesions. Soft tissues: No suspicious soft tissue calcifications. Lung apices are clear. IMPRESSION: Left clavicle without acute radiographic abnormalities or suspicious intraosseous lesions. Degenerative changes of the left acromioclavicular joint. Dictated by: Tang Man M.D. on 07/12/2019 at 13:26 Approved by: Tang Man M.D. on 07/12/2019 at 13:27
--- NOTE | 2019-07-12 | DI.RAD.S_ITS ---
PROCEDURE: XR CHEST 2V INDICATIONS: UPPER LEFT CHEST WALL PAIN AND CLAVICULAR PAIN TECHNIQUE: 2 views of the chest were acquired. COMPARISON: [facility], , CHEST 2 VIEW, 03/19/2015, 10:33. FINDINGS: Surgical changes and devices: Median sternotomy wires are present and appear intact. Prosthetic valve identified. Lungs and pleura: Lungs are clear. No pleural effusions or pneumothorax. Mediastinum: Mediastinal contours are normal. Heart size is normal. Bones and chest wall: No suspicious bony abnormalities. Soft tissues appear unremarkable. IMPRESSION: No acute cardiopulmonary abnormalities or focal airspace disease. Dictated by: Tang Man M.D. on 07/12/2019 at 13:24 Approved by: Tang Man M.D. on 07/12/2019 at 13:26
== END ==
PROVIDERS: Family Provider Family Medicine; PCP Family Medicine; Referring Provider Family Medicine; Visit Provider Family Medicine
DX: R07.89 Other chest pain (principal); M25.512 Pain in left shoulder
CPT/HCPCS: 71046; 73000

== ENCOUNTER 2019-07-17 14:38 | Emergency (ER) | payer OTHER, SELFPAY ==
[2019-07-17 14:41] VITALS: BP 120/59; PULSE 91; RESP 18; TEMP 36.8; O2SAT 98; BMI 33.9
--- NOTE | 2019-07-17 14:50 | DI.RAD.S_ITS ---
PROCEDURE: XR CHEST 1V INDICATIONS: chest pain TECHNIQUE: One view of the chest was acquired. COMPARISON: [facility], , XR CHEST 2V, 07/12/2019, 12:56. FINDINGS: Surgical changes and devices: Median sternotomy changes are present. Lungs and pleura: No definite areas of pulmonary consolidation are identified. No effusions or pneumothorax are evident. Mediastinum: Mediastinal contours appear normal. Heart size is normal. Bones and chest wall: No suspicious bony lesions. Overlying soft tissues appear unremarkable. IMPRESSION: No acute cardiopulmonary process is suspected. Dictated by: Jitendra Goldman M.D. on 07/17/2019 at 14:22 Approved by: Jitendra Goldman M.D. on 07/17/2019 at 14:37
[2019-07-17 15:19] LABS: Add Manual Diff / Slide Review NO; Basophils Absolute Auto 0 /uL (0-100); Basophils Percent Auto 0.3 % (0-2); Eosinophils Absolute Auto 100 /uL (0-450); Eosinophils Percent Auto 0.6 % (2-4); Hemoglobin 11.3 g/dL (13.5-17.5); Lymphocytes Absolute Auto 800 /uL (1100-4500); Lymphocytes Percent Auto 6.3 % (25-40); Mean Corpuscular HGB Conc 33.1 % (30-36); Mean Corpuscular Hemoglobin 29.6 PG (26-34); Mean Corpuscular Volume 89.3 fL (80-100); Monocytes Absolute Auto 1100 /uL (0-900); Monocytes Percent Auto 8.6 % (3-14); Neutrophils Absolute Auto 11000 /uL (1500-7000); Neutrophils Percent Auto 84.2 % (50-75); Platelet Count 270 X10^3/uL (150-400); Red Cell Distribution Width 13.5 % (11.6-14.8); White Blood Cell Count 13.1 X10^3/uL (4.5-11.0)
[2019-07-17 15:21] LABS: INR 1.4 (0.9-1.3); Prothrombin Time 16.1 SECONDS (10.1-12.7)
[2019-07-17 15:23] LABS: PTT Partial Thromboplastin Tim 31 SECONDS (26.4-36.2)
[2019-07-17 15:26] LABS: Alanine Aminotransferase 47 IU/L (<50); Albumin 3.8 g/dL (3.5-5.0); Albumin Globulin Ratio 0.9 (1.0-2.8); Alkaline Phosphatase 198 U/L (38-126); Aspartate Aminotransferase 43 IU/L (17-59); Bilirubin Total 0.8 mg/dL (0.2-1.3); Blood Urea Nitrogen 16 mg/dL (9-20); Calcium 10.2 mg/dL (8.4-10.2); Carbon Dioxide 25 mmol/L (22-32); Chloride 102 mmol/L (98-107); Creatine Kinase < 20 U/L (55-170); Estimated Glomerular Filt Rate > 60.0 mL/min (>60); Globulin 4.2 g/dL (1.7-4.1); Glucose 122 mg/dL (80-110); HEMOLYSIS < 15 (0-50); Lipase 55 U/L (23-300); Potassium 4.1 mmol/L (3.4-5.1); Sodium 136 mmol/L (137-145)
[2019-07-17 15:35] LABS: NT-proBNP (BNP-Adult 18+) 918 pg/mL (<125)
[2019-07-17 15:38] LABS: Troponin I < 0.012 ng/mL (0.01-0.034)
[2019-07-17 16:59] VITALS: BP 127/67; PULSE 76; RESP 16; O2SAT 99
--- NOTE | 2019-07-17 17:44 | ED.SOB ---
HPI - SOB/Dyspnea <Jennifer Garcia PA-C - Last Filed: 07/17/19 23:15> General Chief Complaint: Shortness of Breath/Dyspnea Stated Complaint: LEFT SHOULDER PAIN Time Seen by Provider: 07/17/19 17:11 Source: patient and family Mode of arrival: Wheelchair History of Present Illness HPI Narrative: This is a fatigued-appearing 69-year-old male with history significant for glioblastoma with recent surgery, radiation and chemotherapy, double bypass, aortic valve replacement, saddle embolism, who presents to the emergency department with his after having 2 weeks of increased fatigue, left shoulder pain and left upper chest pain with associated shortness of breath, and recent headache. His last cancer treatment was approximately 2 months ago, he had brain surgery in February. He and his report that for the last couple of months he has been in bed much of the time, because he has not been feeling well since his chemotherapy. He says that his left shoulder pain came on suddenly while he was sleeping approximately 2 weeks ago, it is constant sometimes worse he describes it as 8/10 achy and sharp. It is in the top of his left shoulder and also in his left upper chest it is worse with movement of his arm, and with pressing on the area. He says that his shortness of breath specifically associated with his shoulder pain and only occurs when it is really bad. His reports he has not been his normal self lately and he seems to be confused about times, saying that his shoulder pain has only been present for few days however she knows it has been present for 2 weeks now. He saw his PCP last week toward the end of the week and the week and was given a prescription for opioid pain medicine which has provided some relief. They reportedly did not find a cause for his pain believe it could be musculoskeletal, however advised him to come to the emergency department if it was not resolving within a few days. His states that he had a brain scan about 2 months ago that showed that the glioblastoma was not growing, but that they did not get all of it.He reports he is not on any blood thinners, he had a sample saddle embolism pulmonary embolism and he thinks 2018, took blood thinners for about 6 months after this but was told that his levels looked good and he did not need to continue them. He denies fever, abdominal pain, back pain, dysuria, diarrhea or constipation, numbness or tingling of the left arm. MD Complaint: shortness of breath Context: other (Second to left shoulder pain) Severity: mild Consistency/Duration: intermittent Relieving factors: upright position (Best position for his shoulder pain is not upright and not flat) Exacerbating factors: exertion (He reports he has not been exerting himself lately and also he does not know if it has an affect on his shortness of breath), movement (Movement significantly increases his shoulder pain causing shortness of breath), coughing (He has been having occasional coughing which worsens as shortness of breath) and other (He states that cold causes his shoulder muscles to spasm, worsening his pain) Known history of: PE Associated symptoms: chest pain, cough and other (Left shoulder pain left upper back pain left upper anterior chest pain) Treatment prior to arrival: none Related Data Home Medications Medication Instructions Recorded Confirmed aspirin 81 mg PO DAILY #0 08/04/16 02/20/19 atorvastatin [Lipitor] 40 mg PO DAILY #0 05/21/17 02/20/19 metformin 1,000 mg PO BID 02/20/19 02/20/19 Previous Rx's Medication Instructions Recorded furosemide [Lasix] 40 mg PO DAILY #2 tab 07/17/19 furosemide [Lasix] 40 mg PO DAILY #2 tab 07/17/19 potassium chloride 10 meq PO DAILY #3 cap 07/17/19 Allergies Allergy/AdvReac Type Severity Reaction Status Date / Time Penicillins [PENICILLINS] Allergy Severe anaphylaxis Verified 07/17/19 14:41 Review of Systems <Jennifer Garcia PA-C - Last Filed: 07/17/19 23:15> Review of Systems Narrative: GENERAL: Denies chills, fatigue, malaise, fever, sweats. HEENT: Denies sinus pain, ear pain, sore throat, difficulty swallowing, dizziness. RESPIRATORY: Positive for intermittent shortness of breath associated with shoulder pain, and intermittent cough, negative for wheezing, hemoptysis, sputum. CARDIOVASCULAR: Positive for chest pain on the upper left near his shoulder, negative for, palpitations, orthopnea, edema, GASTROINTESTINAL: Denies nausea, vomiting, abdominal pain, diarrhea, constipation, melena. : Denies dysuria, frequency, incontinence, hematuria, urinary retention. MUSCULOSKELETAL: Complains of significant pain in his left shoulder just above his clavicle as well as in his left upper back, and tenderness to his left upper chest wall, endorses difficulty moving his left arm secondary to extreme pain with movement, denies joint pain, or bony pain SKIN: Denies rash, skin lesions, or other NEUROLOGIC: Positive for increasing weakness last few months particularly in the last few weeks per his , headache for the last 2 days, negative for numbness, change in speech, confusion, seizures, incoordination. PSYCHIATRIC: No concerning psychosocial issues. 12 point review of systems is negative except for those stated above Patient History <Jennifer Garcia PA-C - Last Filed: 07/17/19 23:15> Social History Smoking Status: Unknown if ever smoked Smoking Status: Unknown if ever smoked Exam <Jennifer Garcia PA-C - Last Filed: 07/17/19 23:15> Narrative Exam Narrative: GENERAL: 69 year old patient appears stated age. Well-nourished, well-developed patient, in moderate distress. HEAD: Atraumatic. Normocephalic. EYES: Pupils equal round and reactive. Extraocular motions intact. No scleral icterus. No injection or drainage. ENT: Nose without bleeding, purulent drainage. Throat without erythema, tonsillar hypertrophy or exudate. Airway patent. NECK: Trachea midline. Non tender CARDIOVASCULAR: Regular rate and rhythm without murmurs, gallops, or rubs. RESPIRATORY: Clear to auscultation. Breath sounds equal bilaterally. No wheezes, rales, or rhonchi. GASTROINTESTINAL: Abdomen soft, non-tender, nondistended. EXTREMITIES: He is tender in the area of the left shoulder and anterior superior left chest, just superior to the clavicle and just inferior to the clavicle, he is also tender in his superior back above the scapula. There seems to be some mild associated swelling superior to the clavicle but there is no redness or heat. Has significant pain with range of motion of his left arm at the shoulder, particularly raising it above 90?, No edema or joint tenderness. BACK: He is tender on his upper back. The scapula, otherwise Nontender without deformity or crepitance. No flank tenderness. NEURO: AOx3. SKIN: No rash or erythema of visible areas Initial Vital Signs Initial Vital Signs: Vital Signs Temperature 98.3 F 07/17/19 14:41 Pulse Rate 91 H 07/17/19 14:41 Respiratory Rate 18 07/17/19 14:41 Blood Pressure 120/59 L 07/17/19 14:41 Pulse Oximetry 98 07/17/19 14:41 <Jeffery Valle DO - Last Filed: 07/18/19 04:43> Initial Vital Signs Initial Vital Signs: Vital Signs Temperature 98.3 F 07/17/19 14:41 Pulse Rate 91 H 07/17/19 14:41 Respiratory Rate 18 07/17/19 14:41 Blood Pressure 120/59 L 07/17/19 14:41 Pulse Oximetry 98 07/17/19 14:41 Scores <Jennifer Garcia PA-C - Last Filed: 07/17/19 23:15> Raf Criteria for PE Clinical signs and symptoms of DVT: No PE is #1 Dx or equally likely: No Heart rate > 100: No Immobilization at least 3 days or surg in previous 4 weeks: Yes History of PE or DVT: Yes Hemoptysis: No Malignancy w/Treatment within 6 months or palliative: Yes Wells' PE Score total: 4.0 Course <Jennifer Garcia PA-C - Last Filed: 07/17/19 23:15> Orders Ordered: ED Orders 07/17/19 19:55 D Dimer Stat 07/17/19 20:10 US periph venous up extrem lt Stat 07/17/19 21:08 CT angio chest PE protocol Stat Discontinued Medications Hydrocodone Bitart/Acetaminophen ([place] 5/325) 1 tab PO NOW ONE Stop: 07/17/19 18:46 Last Admin: 07/17/19 18:49 Dose: 1 tab Documented by: RAOUL Furosemide (Lasix) 40 mg PO NOW ONE Stop: 07/17/19 22:39 Last Admin: 07/17/19 23:01 Dose: 40 mg Documented by: RAOUL Reevaluation(s) Reevaluation #1: Spoke with the patient and his again and updated them regarding the labs and imaging so far, advised awaiting for ultrasound to assess for possible DVT, as his shoulder pain is possibly concerning for this. Time: 19:51 Reevaluation #2: Ultrasound was negative for DVT, however have continued concern for clot, given his cancer, history of significant pulmonary embolism, immobility and being fatigued the last few weeks, as well as his chest and shoulder pain with associated shortness of breath, and a notably elevated D-dimer which cannot necessarily be explained by his cancer alone, ordered a CT PE protocol for further evaluation Time: 21:08 Reevaluation #3: Updated the patient and his regarding the results ultrasound, and reviewed labs again with them, advised regarding CT angio to assess for PE of his lungs. Time: 21:11 Vital Signs Vital signs: Vital Signs - 8 hr 07/17/19 21:30 07/17/19 22:30 Pulse Rate 75 69 Respiratory Rate 16 16 Blood Pressure [Right Arm] 105/56 L 105/56 L Pulse Oximetry 98 99 <Jeffery Valle DO - Last Filed: 07/18/19 04:43> Orders Ordered: ED Orders 07/17/19 19:55 D Dimer Stat 07/17/19 20:10 US periph venous up extrem lt Stat 07/17/19 21:08 CT angio chest PE protocol Stat Discontinued Medications Hydrocodone Bitart/Acetaminophen ([place] 5/325) 1 tab PO NOW ONE Stop: 07/17/19 18:46 Last Admin: 07/17/19 18:49 Dose: 1 tab Documented by: RAOUL Furosemide (Lasix) 40 mg PO NOW ONE Stop: 07/17/19 22:39 Last Admin: 07/17/19 23:01 Dose: 40 mg Documented by: RAOUL Vital Signs Vital signs: Vital Signs - 8 hr 07/17/19 21:30 07/17/19 22:30 Pulse Rate 75 69 Respiratory Rate 16 16 Blood Pressure [Right Arm] 105/56 L 105/56 L Pulse Oximetry 98 99 MDM - SOB/Dyspnea <Jennifer Garcia PA-C - Last Filed: 07/17/19 23:15> Differential Diagnosis Differential diagnosis: Likely congestive heart failure, pulmonary embolism and other (Muscular strain) Lab Data Result diagrams: 07/17/19 15:03 07/17/19 15:03 Labs: Lab Results 07/17/19 07/17/19 07/17/19 Range/Units 15:03 15:03 15:03 WBC 13.1 H (4.5-11.0) X10^3/uL RBC 3.80 L (4.5-5.9) X10^6/uL Hgb 11.3 L (13.5-17.5) g/dL Hct 34.0 L (41-53) % MCV 89.3 (80-100) fL MCH 29.6 (26-34) PG MCHC 33.1 (30-36) % RDW 13.5 (11.6-14.8) % Plt Count 270 (150-400) X10^3/uL Neut % (Auto) 84.2 H (50-75) % Lymph % (Auto) 6.3 L (25-40) % [place] % (Auto) 8.6 (3-14) % Eos % (Auto) 0.6 L (2-4) % Baso % (Auto) 0.3 (0-2) % Neut # (Auto) 36685 H (6394-2722) /uL Lymph # (Auto) 800 L (8408-9772) /uL [place] # (Auto) 1100 H (0-900) /uL Eos # (Auto) 100 (0-450) /uL Baso # (Auto) 0 (0-100) /uL PT 16.1 H (10.1-12.7) SECONDS INR 1.4 H (0.9-1.3) APTT 31 (26.4-36.2) SECONDS D-Dimer (<230) ng/mL Sodium 136 L (137-145) mmol/L Potassium 4.1 (3.4-5.1) mmol/L Chloride 102 (98-107) mmol/L Carbon Dioxide 25 (22-32) mmol/L BUN 16 (9-20) mg/dL Creatinine 0.94 (0.66-1.25) mg/dL Estimated GFR > 60.0 (>60) mL/min BUN/Creatinine Ratio 17.0 (6-22) Glucose 122 H (80-110) mg/dL Calcium 10.2 (8.4-10.2) mg/dL Total Bilirubin 0.8 (0.2-1.3) mg/dL AST 43 (17-59) IU/L ALT 47 (<50) IU/L Alkaline Phosphatase 198 H (38-126) U/L Total Creatine Kinase < 20 L (55-170) U/L CK-MB (CK-2) TNP CK-MB (CK-2) Rel Index TNP Troponin I < 0.012 (0.01-0.034) ng/mL NT-Pro-B Natriuret Pep (<125) pg/mL Total Protein 8.0 (6.3-8.2) g/dL Albumin 3.8 (3.5-5.0) g/dL Globulin 4.2 H (1.7-4.1) g/dL Albumin/Globulin Ratio 0.9 L (1.0-2.8) Lipase 55 (23-300) U/L 07/17/19 07/17/19 Range/Units 15:03 19:55 WBC (4.5-11.0) X10^3/uL RBC (4.5-5.9) X10^6/uL Hgb (13.5-17.5) g/dL Hct (41-53) % MCV (80-100) fL MCH (26-34) PG MCHC (30-36) % RDW (11.6-14.8) % Plt Count (150-400) X10^3/uL Neut % (Auto) (50-75) % Lymph % (Auto) (25-40) % [place] % (Auto) (3-14) % Eos % (Auto) (2-4) % Baso % (Auto) (0-2) % Neut # (Auto) (1487-4655) /uL Lymph # (Auto) (6008-6464) /uL [place] # (Auto) (0-900) /uL Eos # (Auto) (0-450) /uL Baso # (Auto) (0-100) /uL PT (10.1-12.7) SECONDS INR (0.9-1.3) APTT (26.4-36.2) SECONDS D-Dimer 2259 H (<230) ng/mL Sodium (137-145) mmol/L Potassium (3.4-5.1) mmol/L Chloride (98-107) mmol/L Carbon Dioxide (22-32) mmol/L BUN (9-20) mg/dL Creatinine (0.66-1.25) mg/dL Estimated GFR (>60) mL/min BUN/Creatinine Ratio (6-22) Glucose (80-110) mg/dL Calcium (8.4-10.2) mg/dL Total Bilirubin (0.2-1.3) mg/dL AST (17-59) IU/L ALT (<50) IU/L Alkaline Phosphatase (38-126) U/L Total Creatine Kinase (55-170) U/L CK-MB (CK-2) CK-MB (CK-2) Rel Index Troponin I (0.01-0.034) ng/mL NT-Pro-B Natriuret Pep 918 H (<125) pg/mL Total Protein (6.3-8.2) g/dL Albumin (3.5-5.0) g/dL Globulin (1.7-4.1) g/dL Albumin/Globulin Ratio (1.0-2.8) Lipase (23-300) U/L Imaging Data Chest x-ray: Attestation: I personally reviewed and interpreted this imaging study as follows: Radiologist's Impression: [address] [id number] XRay Report Signed Patient: Elbert Lu RMR#: [id number] : 9Acct:[id number] Age/Sex: 69 / MDate of Service: 07/17/19 Loc: ED Accession Number: [id number] Procedure: XR chest 1V Ordering Provider: Debbie Gaines MD PROCEDURE: XR CHEST 1V INDICATIONS: chest pain TECHNIQUE: One view of the chest was acquired. COMPARISON: [facility], , XR CHEST 2V, 07/12/2019, 12:56. FINDINGS: Surgical changes and devices: Median sternotomy changes are present. Lungs and pleura: No definite areas of pulmonary consolidation are identified. No effusions or pneumothorax are evident. Mediastinum: Mediastinal contours appear normal. Heart size is normal. Bones and chest wall: No suspicious bony lesions. Overlying soft tissues appear unremarkable. IMPRESSION: No acute cardiopulmonary process is suspected. Dictated by: Jitendra Goldman M.D. on 07/17/2019 at 14:22 Approved by: Jitendra Goldman M.D. on 07/17/2019 at 14:37 US - DVT: Attestation: I personally reviewed and interpreted this imaging study as follows: Radiologist's Impression: [address] [id number] Ultrasound Report Signed Patient: Elbert Lu RMR#: [id number] : 9Acct:[id number] Age/Sex: 69 / MDate of Service: 07/17/19 Loc: ED Accession Number: [id number] Procedure: US perip venous up extrem lt Ordering Provider: Jennifer Garcia P.A-C PROCEDURE: PERIP VENOUS UP EXTREM LT INDICATIONS: CONCERN FOR DVT SUBCLAVIAN TECHNIQUE: Real-time imaging, as well as color and pulse Doppler interrogation, was performed of the left upper extremity deep veins from the inferior neck to the antecubital fossa. COMPARISON: None. FINDINGS: The internal jugular vein, visualized portions of the subclavian vein, axillary, and brachial veins are free of intraluminal thrombus. Where physically possible, the veins are normally compressible. Color and pulse Doppler demonstrate normal intraluminal flow, with expected phasicity and pulsatility. Additional scanning of the cephalic and basilic veins of the superficial system demonstrate normal compressibility, without thrombus. IMPRESSION: Negative for deep venous thrombosis of the left upper extremity. Dictated by: Tang Man M.D. on 07/17/2019 at 21:03 Approved by: Tang Man M.D. on 07/17/2019 at 21:04 CT scan - chest: Attestation: I personally reviewed and interpreted this imaging study as follows: Radiologist's Impression: [place] [id number] CT Scan Report Signed Patient: Elbert Lu RMR#: [id number] : 9Acct:[id number] Age/Sex: 69 / MDate of Service: 07/17/19 Loc: ED Accession Number: [id number] Procedure: CT angio chest PE protocol Ordering Provider: Jennifer Garcia P.A-C PROCEDURE: CT ANGIO CHEST PE PROTOCOL INDICATIONS: concern for PE TECHNIQUE: After the administration of intravenous contrast, 2 mm thick sections acquired from the pulmonary apices to the posterior costophrenic angles. 3-dimensional maximum intensity projection (MIP) coronal and sagittal reformats were then acquired through the thorax. For radiation dose reduction, the following was used: automated exposure control, adjustment of mA and/or kV according to patient size. COMPARISON: [facility], CT, CT CHEST ABDOMEN PELVIS WITH CONTRAST, 02/23/2019, 13:00. FINDINGS: Image quality: There is mild suboptimal timing of contrast bolus limiting evaluation of the pulmonary arteries. The pulmonary arteries were adequately visualized to level of the proximal segmental pulmonary arteries. There is also mild motion artifact. Pulmonary arteries: Pulmonary arteries are normal in size, and demonstrate no intraluminal filling defects to suggest central pulmonary embolism. Lungs and pleura: There are mild diffuse patchy groundglass opacities noted in the bilateral hemithoraces most pronounced in the bilateral upper lobes. There is also superimposed dependent atelectasis bilaterally. No focal consolidation. No septal thickening or nodularity. No pleural effusions or pneumothorax. Central and peripheral airways are patent. Mediastinum: Heart size is mildly enlarged, without pericardial effusion. Postoperative changes from prior coronary arterial bypass surgery. Scattered atherosclerotic calcifications of the coronary arteries are noted. No mediastinal or hilar adenopathy. Thoracic aorta is normal in caliber and enhancement. Esophagus is normal in caliber, without hiatal hernia. Bones and chest wall: No suspicious bony lesions. Ribs and thoracic spine appear intact throughout. No acute compression fractures of the thoracic spine. Multilevel thoracic spondylitic changes. Thyroid gland is unremarkable. No axillary or supraclavicular adenopathy. Multiple median sternotomy wires are noted. Abdomen: Partially imaged large exophytic right renal cyst. Visualized upper abdominal solid organs appear normal in the early arterial phase of enhancement. IMPRESSION: 1. No acute pulmonary emboli to the level of the proximal segmental pulmonary arteries. 2. Diffuse patchy groundglass opacities of the bilateral hemithoraces most pronounced in the upper lobes bilaterally. No focal consolidation or septal thickening/nodularity. Findings may be secondary to an infectious or inflammatory etiology although edema may have a similar appearance given the presence of mild cardiomegaly and postoperative changes from previous coronary bypass procedure. Other chronic findings as above. Dictated by: Tang Man M.D. on 07/17/2019 at 22:07 Approved by: Tang Man M.D. on 07/17/2019 at 22:23 ECG Data Attestation: I personally reviewed and interpreted this ECG as follows: (Normal sinus rhythm normal EKG ventricular rate 86 p.r. interval 148 QRS 108 QTC 386 P axis 49 R axis -[address] Gaines personally reviewed this EKG) MDM Narrative Medical decision making narrative: This is somewhat tired appearing 69-year-old male with a history significant for saddle embolism, Glioblastoma, with recent treatment (chemo and radiation) and brain surgery, cardiac double bypass, aortic valve replacement, and recent largely bed-bound status due to fatigue who presents to the emergency department complaining of approximately 2 weeks of left shoulder and left upper chest pain as well as some shortness of breath. After workup with labs, ultrasound and CT PE, I feel that his mild recent shortness of breath may be explained by CHF diagnosis, considering that he has an elevated BNP, and has been sleeping somewhat upright last few weeks and has had some increased fatigue recently with mild shortness of breath occasionally. He does not appear to have evidence of a pulmonary embolism or DVT, his elevated D-dimer is likely 2nd to his active cancer. His left shoulder pain may be explained by musculoskeletal strain. Have advised he and his that he should be following up with his primary care physician daily tomorrow at least by phone, and he should see his drier helper as well. He was given a dose of Lasix in the emergency department, and a prescription for 2 days of Lasix with potassium. <Jeffery Valle, DO - Last Filed: 07/18/19 04:43> Lab Data Labs: Lab Results 07/17/19 07/17/19 07/17/19 Range/Units 15:03 15:03 15:03 WBC 13.1 H (4.5-11.0) X10^3/uL RBC 3.80 L (4.5-5.9) X10^6/uL Hgb 11.3 L (13.5-17.5) g/dL Hct 34.0 L (41-53) % MCV 89.3 (80-100) fL MCH 29.6 (26-34) PG MCHC 33.1 (30-36) % RDW 13.5 (11.6-14.8) % Plt Count 270 (150-400) X10^3/uL Neut % (Auto) 84.2 H (50-75) % Lymph % (Auto) 6.3 L (25-40) % [place] % (Auto) 8.6 (3-14) % Eos % (Auto) 0.6 L (2-4) % Baso % (Auto) 0.3 (0-2) % Neut # (Auto) 82399 H (7993-2134) /uL Lymph # (Auto) 800 L (6550-5363) /uL [place] # (Auto) 1100 H (0-900) /uL Eos # (Auto) 100 (0-450) /uL Baso # (Auto) 0 (0-100) /uL PT 16.1 H (10.1-12.7) SECONDS INR 1.4 H (0.9-1.3) APTT 31 (26.4-36.2) SECONDS D-Dimer (<230) ng/mL Sodium 136 L (137-145) mmol/L Potassium 4.1 (3.4-5.1) mmol/L Chloride 102 (98-107) mmol/L Carbon Dioxide 25 (22-32) mmol/L BUN 16 (9-20) mg/dL Creatinine 0.94 (0.66-1.25) mg/dL Estimated GFR > 60.0 (>60) mL/min BUN/Creatinine Ratio 17.0 (6-22) Glucose 122 H (80-110) mg/dL Calcium 10.2 (8.4-10.2) mg/dL Total Bilirubin 0.8 (0.2-1.3) mg/dL AST 43 (17-59) IU/L ALT 47 (<50) IU/L Alkaline Phosphatase 198 H (38-126) U/L Total Creatine Kinase < 20 L (55-170) U/L CK-MB (CK-2) TNP CK-MB (CK-2) Rel Index TNP Troponin I < 0.012 (0.01-0.034) ng/mL NT-Pro-B Natriuret Pep (<125) pg/mL Total Protein 8.0 (6.3-8.2) g/dL Albumin 3.8 (3.5-5.0) g/dL Globulin 4.2 H (1.7-4.1) g/dL Albumin/Globulin Ratio 0.9 L (1.0-2.8) Lipase 55 (23-300) U/L 07/17/19 07/17/19 Range/Units 15:03 19:55 WBC (4.5-11.0) X10^3/uL RBC (4.5-5.9) X10^6/uL Hgb (13.5-17.5) g/dL Hct (41-53) % MCV (80-100) fL MCH (26-34) PG MCHC (30-36) % RDW (11.6-14.8) % Plt Count (150-400) X10^3/uL Neut % (Auto) (50-75) % Lymph % (Auto) (25-40) % [place] % (Auto) (3-14) % Eos % (Auto) (2-4) % Baso % (Auto) (0-2) % Neut # (Auto) (2988-5245) /uL Lymph # (Auto) (8444-3676) /uL [place] # (Auto) (0-900) /uL Eos # (Auto) (0-450) /uL Baso # (Auto) (0-100) /uL PT (10.1-12.7) SECONDS INR (0.9-1.3) APTT (26.4-36.2) SECONDS D-Dimer 2259 H (<230) ng/mL Sodium (137-145) mmol/L Potassium (3.4-5.1) mmol/L Chloride (98-107) mmol/L Carbon Dioxide (22-32) mmol/L BUN (9-20) mg/dL Creatinine (0.66-1.25) mg/dL Estimated GFR (>60) mL/min BUN/Creatinine Ratio (6-22) Glucose (80-110) mg/dL Calcium (8.4-10.2) mg/dL Total Bilirubin (0.2-1.3) mg/dL AST (17-59) IU/L ALT (<50) IU/L Alkaline Phosphatase (38-126) U/L Total Creatine Kinase (55-170) U/L CK-MB (CK-2) CK-MB (CK-2) Rel Index Troponin I (0.01-0.034) ng/mL NT-Pro-B Natriuret Pep 918 H (<125) pg/mL Total Protein (6.3-8.2) g/dL Albumin (3.5-5.0) g/dL Globulin (1.7-4.1) g/dL Albumin/Globulin Ratio (1.0-2.8) Lipase (23-300) U/L Discharge Plan Departure Patient Disposition: Home Clinical Impression: Acute shoulder pain Qualifiers: Laterality: left Qualified Code(s): M25.512 - Pain in left shoulder CHF (congestive heart failure) Qualifiers: Heart failure type: unspecified Heart failure chronicity: acute Qualified Code(s): I50.9 - Heart failure, unspecified Dyspnea Qualifiers: Dyspnea type: other forms of dyspnea Qualified Code(s): R06.09 - Other forms of dyspnea Discharge Date/Time: 07/17/19 23:22 Instructions: Congestive Heart Failure (Alternative Therapy), DI for Heart Failure, DI for Shortness of Breath, DI for Shoulder Pain Activity Restrictions/Additional Instructions: Thank you for letting us to be part of your care today. Labs, chest x-ray, ultrasound and CT scan were performed during your visit today. There is no evidence of an emergent or life threatening illness at this time, but it looks like you may have some mild fluid-in your lungs that is likely due to your heart function, and I have prescribed a medication called Lasix which you can take for the next 2 days, and you should follow-up with your PCP tomorrow to be reassessed and continue to rule out serious underlying causes of your symptoms. I have also prescribed some potassium for you as it is important to take this when taking lasix. Please call the office for an appointment. Please return to the Emergency Department for any worsening or persistent symptoms. You should also see your drier helper. Please take medications as directed. I have not prescribed any medications for your shoulder pain as your PCP has already done this, and they have provided some relief for you. If you experience any worsening symptoms, or new or concerning symptoms you should seek medical care, or return to the emergency department. Prescriptions: New furosemide [Lasix] 40 mg tablet 40 mg PO DAILY Qty: 2 RF: 0 potassium chloride 10 mEq capsule, extended release 10 meq PO DAILY Qty: 3 RF: 0 furosemide [Lasix] 40 mg tablet 40 mg PO DAILY Qty: 2 RF: 0 No Action aspirin 81 MG tablet,delayed release (DR/EC) 81 mg PO DAILY Qty: 0 RF: 0 atorvastatin [Lipitor] 40 MG tablet 40 mg PO DAILY Qty: 0 RF: 0 metformin 1,000 mg Tablet 1,000 mg PO BID RF: 0 Referrals: Kostas Ybarra MD [Primary Care Provider] -
[2019-07-17 18:42] VITALS: BP 112/58; PULSE 83; RESP 17; O2SAT 100
--- NOTE | 2019-07-17 18:43 | PC.NURSE ---
Patient complains fo increased pain. Wants update. I spoke with Provider Jose and gave patient and family an update. Pain meds. to be given.
[2019-07-17] MEDS: HYDROCODONE/ACET 5/325 TABLET 1 TAB PO (18:49)
--- NOTE | 2019-07-17 20:10 | DI.US.S_ITS ---
PROCEDURE: US PERIPH VENOUS UP EXTREM LT INDICATIONS: CONCERN FOR DVT SUBCLAVIAN TECHNIQUE: Real-time imaging, as well as color and pulse Doppler interrogation, was performed of the left upper extremity deep veins from the inferior neck to the antecubital fossa. COMPARISON: None. FINDINGS: The internal jugular vein, visualized portions of the subclavian vein, axillary, and brachial veins are free of intraluminal thrombus. Where physically possible, the veins are normally compressible. Color and pulse Doppler demonstrate normal intraluminal flow, with expected phasicity and pulsatility. Additional scanning of the cephalic and basilic veins of the superficial system demonstrate normal compressibility, without thrombus. IMPRESSION: Negative for deep venous thrombosis of the left upper extremity. Dictated by: Tang Man M.D. on 07/17/2019 at 21:03 Approved by: Tang Man M.D. on 07/17/2019 at 21:04
[2019-07-17 20:19] VITALS: BP 115/58; PULSE 73; RESP 17; O2SAT 99
[2019-07-17 20:26] LABS: D Dimer 2259 ng/mL (<230)
--- NOTE | 2019-07-17 21:08 | DI.CT.S_ITS ---
PROCEDURE: CT ANGIO CHEST PE PROTOCOL INDICATIONS: concern for PE TECHNIQUE: After the administration of intravenous contrast, 2 mm thick sections acquired from the pulmonary apices to the posterior costophrenic angles. 3-dimensional maximum intensity projection (MIP) coronal and sagittal reformats were then acquired through the thorax. For radiation dose reduction, the following was used: automated exposure control, adjustment of mA and/or kV according to patient size. COMPARISON: [facility], CT, CT CHEST ABDOMEN PELVIS WITH CONTRAST, 02/23/2019, 13:00. FINDINGS: Image quality: There is mild suboptimal timing of contrast bolus limiting evaluation of the pulmonary arteries. The pulmonary arteries were adequately visualized to level of the proximal segmental pulmonary arteries. There is also mild motion artifact. Pulmonary arteries: Pulmonary arteries are normal in size, and demonstrate no intraluminal filling defects to suggest central pulmonary embolism. Lungs and pleura: There are mild diffuse patchy groundglass opacities noted in the bilateral hemithoraces most pronounced in the bilateral upper lobes. There is also superimposed dependent atelectasis bilaterally. No focal consolidation. No septal thickening or nodularity. No pleural effusions or pneumothorax. Central and peripheral airways are patent. Mediastinum: Heart size is mildly enlarged, without pericardial effusion. Postoperative changes from prior coronary arterial bypass surgery. Scattered atherosclerotic calcifications of the coronary arteries are noted. No mediastinal or hilar adenopathy. Thoracic aorta is normal in caliber and enhancement. Esophagus is normal in caliber, without hiatal hernia. Bones and chest wall: No suspicious bony lesions. Ribs and thoracic spine appear intact throughout. No acute compression fractures of the thoracic spine. Multilevel thoracic spondylitic changes. Thyroid gland is unremarkable. No axillary or supraclavicular adenopathy. Multiple median sternotomy wires are noted. Abdomen: Partially imaged large exophytic right renal cyst. Visualized upper abdominal solid organs appear normal in the early arterial phase of enhancement. IMPRESSION: 1. No acute pulmonary emboli to the level of the proximal segmental pulmonary arteries. 2. Diffuse patchy groundglass opacities of the bilateral hemithoraces most pronounced in the upper lobes bilaterally. No focal consolidation or septal thickening/nodularity. Findings may be secondary to an infectious or inflammatory etiology although edema may have a similar appearance given the presence of mild cardiomegaly and postoperative changes from previous coronary bypass procedure. Other chronic findings as above. Dictated by: Tang Man M.D. on 07/17/2019 at 22:07 Approved by: Tang Man M.D. on 07/17/2019 at 22:23
[2019-07-17 21:30] VITALS: BP 105/56; PULSE 75; RESP 16; O2SAT 98
[2019-07-17 22:30] VITALS: BP 105/56; PULSE 69; RESP 16; O2SAT 99
[2019-07-17] MEDS: FUROSEMIDE 40 MG TABLET PO (23:01)
== END 2019-07-17 23:22 | disposition home or self-care (01) ==
PROVIDERS: Emergency Medicine; Emergency Provider Student in an Organized Health Care Education/Training Program; Family Provider Family Medicine; PCP Family Medicine
DX: M25.512 Pain in left shoulder (principal); I50.9 Heart failure, unspecified; R06.09 Other forms of dyspnea; R06.02 Shortness of breath; R51 Headache; R07.9 Chest pain, unspecified
CPT/HCPCS: 36415; 71045; 71275; 80053; 82550; 83690; 83880; 84484; 85025; 85379; 85610; 85730; 93005; 93971; 99284

== ENCOUNTER 2019-08-12 06:09 | Emergency (ER) | payer OTHER, SELFPAY ==
[2019-08-12] VITALS (23 sets, daily range): BP systolic 96–143; BP diastolic 53–79; PULSE 63–97; RESP 15–18; TEMP 36.8–37.1; O2SAT 94–99
--- NOTE | 2019-08-12 06:31 | DI.CT.S_ITS ---
PROCEDURE: CT HEAD/BRAIN WO CON INDICATIONS: glioblastoma history with 15min of unresponsiveness TECHNIQUE: Noncontrast 4.5 mm thick angled axial sections acquired from the foramen magnum to the vertex, with coronal and sagittal reformats. For radiation dose reduction, the following was used: automated exposure control, adjustment of mA and/or kV according to patient size. COMPARISON: [facility], CT, CT CERVICAL SPINE WO CON, 08/12/2019, 6:31. [facility], MR, MR BRAIN WITH/WITHOUT CONTRAST, 06/08/2019, 11:11. [facility], MR, MR BRAIN WITH/WITHOUT CONTRAST, 08/11/2019, 12:26. [facility], MR, MR BRAIN WITH/WITHOUT CONTRAST, 04/12/2019, 10:08. [facility], MR, MR BRAIN WITH/WITHOUT CONTRAST, 03/02/2019, 17:06. [facility], CT, CT HEAD WITHOUT CONTRAST, 03/01/2019, 21:31. [facility], MR, BRAIN, 02/24/2019, 13:13. [facility], CT, CT HEAD/BRAIN WO CON, 02/20/2019, 13:25. [facility], CT, CT HEAD/BRAIN WO CON, 02/21/2019, 2:13. FINDINGS: Image quality: Excellent. CSF spaces: Basal cisterns are patent. No extra-axial fluid collections. The ventricles are symmetric in size and shape. Brain: No intracranial bleeds or masses. There is cerebral volume loss for age, with resultant ventricular and sulcal prominence. There are periventricular and deep white matter chronic small vessel ischemic changes. Focal edema is seen within the left inferior cerebellum, at the site of the known enhancing mass, as on series 2 image 6 and on series 4 of series 32. Prior right anterior temporal lobe resection can be seen. There is intracranial internal carotid artery atherosclerosis. Skull and face: Right craniotomy changes are seen. Calvarium and visualized facial bones appear intact, without suspicious lesions. Sinuses: Visualized sinuses and mastoids are clear. IMPRESSION: No significant acute abnormality is seen to explain the patient's presenting symptoms. Edema is seen within the left inferior cerebellum at the site of the patient's known enhancing mass, which is much better seen on MRI 08/11/19. Prior anterior right temporal lobe resection. Note: No significant discrepancy from the preliminary report. Dictated by: Brady Mandujano M.D. on 08/12/2019 at 6:26 Approved by: Brady Mandujano M.D. on 08/12/2019 at 6:32
--- NOTE | 2019-08-12 06:31 | DI.CT.S_ITS ---
PROCEDURE: CT CERVICAL SPINE WO CON INDICATIONS: left neck pain with tenderness to palpation midline, TECHNIQUE: Noncontrast 3 mm thick sections acquired from the skull base to the T4 level. Sagittal and coronal reformats were then constructed. For radiation dose reduction, the following was used: automated exposure control, adjustment of mA and/or kV according to patient size. COMPARISON: [facility], CT, CT HEAD/BRAIN WO CON, 08/12/2019, 6:31. [facility], MR, MR CERVICAL SPINE WITH/WITHOUT CONTRAST, 08/11/2019, 12:26. [facility], MR, MR BRAIN WITH/WITHOUT CONTRAST, 08/11/2019, 12:26. FINDINGS: Image quality: Excellent. Bones: No fractures or dislocations. Visualized superior ribs are intact. Degenerative changes are seen, including moderate to severe disc space narrowing at C5-C6 and moderate disc space narrowing at C6-C7. Endplate irregularity and sclerosis as well as bridging anterior osteophytes can be seen at these levels. Milder degenerative changes are seen elsewhere. Soft tissues: Prevertebral soft tissues are normal in thickness. No paravertebral hematomas. No apical pneumothoraces. Post CABG changes are seen. IMPRESSION: Lower cervical spine degenerative changes are seen, without an acute abnormality seen. Post CABG changes. Note: No significant discrepancy from the preliminary report. Dictated by: Brady Mandujano M.D. on 08/12/2019 at 6:32 Approved by: Brady Mandujano M.D. on 08/12/2019 at 6:34
--- NOTE | 2019-08-12 06:56 | ED_ITS ---
HPI - Neuro Symptoms/Deficit <Debbie Gaines MD - Last Filed: 08/13/19 02:07> General Chief Complaint: Neuro Symptoms/Deficit Stated Complaint: Side and neck pain Time Seen by Provider: 08/12/19 06:25 Mode of arrival: EMS History of Present Illness HPI Narrative: 69-year-old gentleman presents with altered mental status for at least 15 minutes this morning. His difficulty started in February with new seizure diagnosis that eventually led to a diagnosis of glioblastoma. Additional medical history includes coronary artery disease with double bypass and aortic valve replacement and history of a saddle embolism in the past not currently anticoagulated. He has since undergone 15 rounds of radiation and chemotherapy. He had a larger dose of chemotherapy about a month ago and his reports that he has had a significant decline since that period she states that this morning have an episode where he slumped out of bed was not neurologically responsive but was maintaining his airway. He did not lose bowel or bladder and did not have seizure-like activity. She eventually called medics for help in getting him and to bring him into the emergency room for additional evaluation. She had been talking to his oncologist's recently and he actually did have an MRI of brain and cervical spine yesterday at [facility]. She notes that he has been having increasing left-sided neck pain, decreasing cognitive activity and overall mental status in the last month since the recent chemo. Related Data Home Medications Medication Instructions Recorded Confirmed aspirin 81 mg PO DAILY #0 08/04/16 08/12/19 hydrocodone-acetaminophen 1 - 2 tab PO QID PRN 08/12/19 08/12/19 levetiracetam 750 mg PO BID 08/12/19 08/12/19 lorazepam 0.5 mg PO BID PRN 08/12/19 08/12/19 ondansetron 8 mg PO QID PRN 08/12/19 08/12/19 prednisone 20 mg PO DAILY 08/12/19 08/12/19 prochlorperazine maleate 10 mg PO TID PRN 08/12/19 08/12/19 Allergies Allergy/AdvReac Type Severity Reaction Status Date / Time Penicillins [PENICILLINS] Allergy Severe anaphylaxis Verified 08/12/19 14:11 Review of Systems <Debbie Gaines MD - Last Filed: 08/13/19 02:07> Review of Systems Narrative: notes that he has been having increasing abdominal pain that they have been trying some laxatives but she is not sure that he has had a bowel movement for an extended period of time. She notes no fevers She feels that he has been getting weaker, having difficulty getting out of bed and less than less ability to cognitively interact She has not noticed specific weakness, but has noticed overall global weakness and overall decline Remainder of review is limited due to his medical condition Patient History <Debbie Gaines MD - Last Filed: 08/13/19 02:07> Medical History Coronary artery disease (Acute) Glioblastoma (Acute) Surgical History S/P AVR (aortic valve replacement) (Acute ~07/27/17) S/P CABG x 2 (Acute ~07/27/17) Social History Smoking Status: Unknown if ever smoked Smoking Status: Unknown if ever smoked Exam <Debbie Gaines MD - Last Filed: 08/13/19 02:07> Narrative Exam Narrative: General: Healthy appearing, in no acute distress. Slightly confused, not oriented to date or events. HEENT: Moist mucous membranes, normal sclera with reactive pupils, Neck: Tender along the entire left side of the neck with paraspinous muscle spasm and tenderness along axial skeleton Respiratory: Lungs are clear to auscultation, no wheezing no rales no rhonchi. Full and symmetrical air movement Cardiac: Regular rate and rhythm no murmurs no bruits Abdomen: Diffusely tender without rebound or guarding good bowel tones, no flank pain Skin: Warm and dry, no rashes Neurologic: no obvious asymmetries Extremities: No trauma, well perfused Initial Vital Signs Initial Vital Signs: Vital Signs Temperature 98.7 F 08/12/19 06:12 Pulse Rate 97 H 08/12/19 06:12 Respiratory Rate 15 08/12/19 06:12 Blood Pressure 109/59 L 08/12/19 06:12 Pulse Oximetry 94 08/12/19 06:12 <Destin Finley MD - Last Filed: 08/13/19 15:19> Initial Vital Signs Initial Vital Signs: Vital Signs Temperature 98.7 F 08/12/19 06:12 Pulse Rate 97 H 08/12/19 06:12 Respiratory Rate 15 08/12/19 06:12 Blood Pressure 109/59 L 08/12/19 06:12 Pulse Oximetry 94 08/12/19 06:12 Course <Debbie Gaines MD - Last Filed: 08/13/19 02:07> Orders Ordered: Discontinued Medications Hydrocodone Bitart/Acetaminophen ([place] 5/325) 2 tab PO NOW ONE Stop: 08/12/19 14:22 Last Admin: 08/12/19 14:28 Dose: 2 tab Documented by: DANDY Diphenhydramine HCl (Benadryl) 25 mg IV NOW ONE Stop: 08/12/19 15:47 Last Admin: 08/12/19 15:54 Dose: 25 mg Documented by: RAOUL Sodium Chloride (Normal Saline 0.9%) 1,000 mls @ 1,000 mls/hr IV BOLUS ONE Stop: 08/12/19 14:31 Last Infusion: 08/12/19 16:16 Dose: 0 mls/hr Documented by: Admin: 08/12/19 14:05 Dose: 1,000 mls/hr Documented by: DANDY Cefepime HCl 2 gm/ Sodium (Chloride) 100 mls @ 200 mls/hr IV NOW ONE Stop: 08/12/19 15:47 Last Infusion: 08/12/19 16:35 Dose: 0 mls/hr Documented by: Admin: 08/12/19 15:53 Dose: 200 mls/hr Documented by: RAOUL Levetiracetam (Keppra) 750 mg PO NOW ONE Stop: 08/12/19 15:54 Last Admin: 08/12/19 16:13 Dose: 750 mg Documented by: RAOUL Prednisone (Deltasone) 20 mg PO NOW ONE Stop: 08/12/19 15:54 Last Admin: 08/12/19 16:13 Dose: 20 mg Documented by: RAOUL Vital Signs Vital signs: Vital Signs - 8 hr 08/12/19 19:00 08/12/19 19:30 08/12/19 20:30 Temperature Pulse Rate 76 73 82 Respiratory Rate 16 16 16 Blood Pressure Blood Pressure [Right Arm] 131/67 117/60 107/69 Pulse Oximetry 98 98 96 08/12/19 21:00 08/12/19 21:03 08/12/19 21:30 Temperature Pulse Rate 81 75 70 Respiratory Rate 18 16 16 Blood Pressure Blood Pressure [Right Arm] 117/61 107/53 L 105/68 Pulse Oximetry 97 97 97 08/12/19 22:05 Temperature 98.2 F Pulse Rate 77 Respiratory Rate 18 Blood Pressure 111/64 Blood Pressure [Right Arm] Pulse Oximetry 98 <Destin Finley MD - Last Filed: 08/13/19 15:19> Orders Ordered: Discontinued Medications Hydrocodone Bitart/Acetaminophen ([place] 5/325) 2 tab PO NOW ONE Stop: 08/12/19 14:22 Last Admin: 08/12/19 14:28 Dose: 2 tab Documented by: DANDY Diphenhydramine HCl (Benadryl) 25 mg IV NOW ONE Stop: 08/12/19 15:47 Last Admin: 08/12/19 15:54 Dose: 25 mg Documented by: RAOUL Sodium Chloride (Normal Saline 0.9%) 1,000 mls @ 1,000 mls/hr IV BOLUS ONE Stop: 08/12/19 14:31 Last Infusion: 08/12/19 16:16 Dose: 0 mls/hr Documented by: Admin: 08/12/19 14:05 Dose: 1,000 mls/hr Documented by: DANDY Cefepime HCl 2 gm/ Sodium (Chloride) 100 mls @ 200 mls/hr IV NOW ONE Stop: 08/12/19 15:47 Last Infusion: 08/12/19 16:35 Dose: 0 mls/hr Documented by: Admin: 08/12/19 15:53 Dose: 200 mls/hr Documented by: RAOUL Levetiracetam (Keppra) 750 mg PO NOW ONE Stop: 08/12/19 15:54 Last Admin: 08/12/19 16:13 Dose: 750 mg Documented by: RAOUL Prednisone (Deltasone) 20 mg PO NOW ONE Stop: 08/12/19 15:54 Last Admin: 08/12/19 16:13 Dose: 20 mg Documented by: RAOUL Vital Signs Vital signs: Vital Signs - 8 hr 08/12/19 19:00 08/12/19 19:30 08/12/19 20:30 Temperature Pulse Rate 76 73 82 Respiratory Rate 16 16 16 Blood Pressure Blood Pressure [Right Arm] 131/67 117/60 107/69 Pulse Oximetry 98 98 96 08/12/19 21:00 08/12/19 21:03 08/12/19 21:30 Temperature Pulse Rate 81 75 70 Respiratory Rate 18 16 16 Blood Pressure Blood Pressure [Right Arm] 117/61 107/53 L 105/68 Pulse Oximetry 97 97 97 08/12/19 22:05 Temperature 98.2 F Pulse Rate 77 Respiratory Rate 18 Blood Pressure 111/64 Blood Pressure [Right Arm] Pulse Oximetry 98 MDM - Neuro Symptoms/Deficit <Debbie Gaines MD - Last Filed: 08/13/19 02:07> Medical Records Attestation: I reviewed the patient's medical records. Lab Data Result diagrams: 08/12/19 11:39 08/12/19 11:39 Labs: Lab Results 08/12/19 08/12/19 08/12/19 Range/Units 11:39 11:39 11:39 WBC 13.1 H (4.5-11.0) X10^3/uL RBC 4.00 L (4.5-5.9) X10^6/uL Hgb 12.5 L (13.5-17.5) g/dL Hct 36.3 L (41-53) % MCV 90.7 (80-100) fL MCH 31.3 (26-34) PG MCHC 34.5 (30-36) % RDW 14.6 (11.6-14.8) % Plt Count 130 L (150-400) X10^3/uL Neut % (Auto) 87.1 H (50-75) % Lymph % (Auto) 4.7 L (25-40) % [place] % (Auto) 7.2 (3-14) % Eos % (Auto) 0.1 L (2-4) % Baso % (Auto) 0.9 (0-2) % Neut # (Auto) 12974 H (9058-3409) /uL Lymph # (Auto) 600 L (1941-5758) /uL [place] # (Auto) 900 (0-900) /uL Eos # (Auto) 0 (0-450) /uL Baso # (Auto) 100 (0-100) /uL ESR (0-15) MM/HR Sodium 140 (137-145) mmol/L Potassium 4.2 (3.4-5.1) mmol/L Chloride 98 (98-107) mmol/L Carbon Dioxide 25 (22-32) mmol/L BUN 21 H (9-20) mg/dL Creatinine 0.77 (0.66-1.25) mg/dL Estimated GFR > 60.0 (>60) mL/min BUN/Creatinine Ratio 27.3 H (6-22) Glucose 160 H (80-110) mg/dL Calcium 9.7 (8.4-10.2) mg/dL Total Bilirubin 1.1 (0.2-1.3) mg/dL AST 62 H (17-59) IU/L ALT 101 H (<50) IU/L Alkaline Phosphatase 203 H (38-126) U/L Troponin I 0.012 (0.01-0.034) ng/mL C-Reactive Protein (<1.0) mg/dL Total Protein 7.3 (6.3-8.2) g/dL Albumin 3.4 L (3.5-5.0) g/dL Globulin 3.9 (1.7-4.1) g/dL Albumin/Globulin Ratio 0.9 L (1.0-2.8) Urine RBC (0-5/HPF) Urine WBC (0-5/HPF) Urine Bacteria (None) Ur Culture Indicated? 08/12/19 08/12/19 08/12/19 Range/Units 11:39 11:39 14:45 WBC (4.5-11.0) X10^3/uL RBC (4.5-5.9) X10^6/uL Hgb (13.5-17.5) g/dL Hct (41-53) % MCV (80-100) fL MCH (26-34) PG MCHC (30-36) % RDW (11.6-14.8) % Plt Count (150-400) X10^3/uL Neut % (Auto) (50-75) % Lymph % (Auto) (25-40) % [place] % (Auto) (3-14) % Eos % (Auto) (2-4) % Baso % (Auto) (0-2) % Neut # (Auto) (2426-8092) /uL Lymph # (Auto) (9941-8656) /uL [place] # (Auto) (0-900) /uL Eos # (Auto) (0-450) /uL Baso # (Auto) (0-100) /uL ESR 70 H (0-15) MM/HR Sodium (137-145) mmol/L Potassium (3.4-5.1) mmol/L Chloride (98-107) mmol/L Carbon Dioxide (22-32) mmol/L BUN (9-20) mg/dL Creatinine (0.66-1.25) mg/dL Estimated GFR (>60) mL/min BUN/Creatinine Ratio (6-22) Glucose (80-110) mg/dL Calcium (8.4-10.2) mg/dL Total Bilirubin (0.2-1.3) mg/dL AST (17-59) IU/L ALT (<50) IU/L Alkaline Phosphatase (38-126) U/L Troponin I (0.01-0.034) ng/mL C-Reactive Protein 23.2 H (<1.0) mg/dL Total Protein (6.3-8.2) g/dL Albumin (3.5-5.0) g/dL Globulin (1.7-4.1) g/dL Albumin/Globulin Ratio (1.0-2.8) Urine RBC 10-30/hpf H (0-5/HPF) Urine WBC 5-10/hpf H (0-5/HPF) Urine Bacteria Many (>30) H (None) Ur Culture Indicated? Specimen cultured Urine Dip Bedside Urine Glucose Negative Bedside Urine Bilirubin - Negative Bedside Urine Ketone - Negative Urine Specific [place] 1.015 Bedside Urine Occult Blood +++ Bedside Urine pH 6.0 Bedside Urine Protein + 30 Bedside Urine Urobilinogen - Negative Bedside Urine Nitrite - Negative Bedside Urine Leukocytes +/- 15 Esterase Imaging Data MRI brain and cervical spine 08/11/2019: Radiologist's Impression: Brain study impression new 11 mm mass seen involving the left inferior cerebellum. No additional masses detected. Mild residual right lateral subdural hematoma seen which is improved compared to prior study Cervical study: Focal and planed edema and enhancement seen at C5-C6. This is attributed to advanced degenerative change. No abnormal cord signal or cord enhancement seen. Brady Mandujano MD MDM Narrative Medical decision making narrative: 69-year-old gentleman with general decline in the last month after last chemotherapy in the setting of newly diagnosed glioblastoma and recent 15 rounds of radiation and chemotherapy. MRI done yesterday as part of his routine care reveals a new 11 mm mass in the left cerebellum. Findings are shared with his . Care will be turned over to Dr. Finley. Awaiting labs and will need to delineate discharge plans. <Destin Finley MD - Last Filed: 08/13/19 15:19> Lab Data Labs: Lab Results 08/12/19 08/12/19 08/12/19 Range/Units 11:39 11:39 11:39 WBC 13.1 H (4.5-11.0) X10^3/uL RBC 4.00 L (4.5-5.9) X10^6/uL Hgb 12.5 L (13.5-17.5) g/dL Hct 36.3 L (41-53) % MCV 90.7 (80-100) fL MCH 31.3 (26-34) PG MCHC 34.5 (30-36) % RDW 14.6 (11.6-14.8) % Plt Count 130 L (150-400) X10^3/uL Neut % (Auto) 87.1 H (50-75) % Lymph % (Auto) 4.7 L (25-40) % [place] % (Auto) 7.2 (3-14) % Eos % (Auto) 0.1 L (2-4) % Baso % (Auto) 0.9 (0-2) % Neut # (Auto) 59425 H (5760-7093) /uL Lymph # (Auto) 600 L (3226-7944) /uL [place] # (Auto) 900 (0-900) /uL Eos # (Auto) 0 (0-450) /uL Baso # (Auto) 100 (0-100) /uL ESR (0-15) MM/HR Sodium 140 (137-145) mmol/L Potassium 4.2 (3.4-5.1) mmol/L Chloride 98 (98-107) mmol/L Carbon Dioxide 25 (22-32) mmol/L BUN 21 H (9-20) mg/dL Creatinine 0.77 (0.66-1.25) mg/dL Estimated GFR > 60.0 (>60) mL/min BUN/Creatinine Ratio 27.3 H (6-22) Glucose 160 H (80-110) mg/dL Calcium 9.7 (8.4-10.2) mg/dL Total Bilirubin 1.1 (0.2-1.3) mg/dL AST 62 H (17-59) IU/L ALT 101 H (<50) IU/L Alkaline Phosphatase 203 H (38-126) U/L Troponin I 0.012 (0.01-0.034) ng/mL C-Reactive Protein (<1.0) mg/dL Total Protein 7.3 (6.3-8.2) g/dL Albumin 3.4 L (3.5-5.0) g/dL Globulin 3.9 (1.7-4.1) g/dL Albumin/Globulin Ratio 0.9 L (1.0-2.8) Urine RBC (0-5/HPF) Urine WBC (0-5/HPF) Urine Bacteria (None) Ur Culture Indicated? 08/12/19 08/12/19 08/12/19 Range/Units 11:39 11:39 14:45 WBC (4.5-11.0) X10^3/uL RBC (4.5-5.9) X10^6/uL Hgb (13.5-17.5) g/dL Hct (41-53) % MCV (80-100) fL MCH (26-34) PG MCHC (30-36) % RDW (11.6-14.8) % Plt Count (150-400) X10^3/uL Neut % (Auto) (50-75) % Lymph % (Auto) (25-40) % [place] % (Auto) (3-14) % Eos % (Auto) (2-4) % Baso % (Auto) (0-2) % Neut # (Auto) (0327-8475) /uL Lymph # (Auto) (1701-6679) /uL [place] # (Auto) (0-900) /uL Eos # (Auto) (0-450) /uL Baso # (Auto) (0-100) /uL ESR 70 H (0-15) MM/HR Sodium (137-145) mmol/L Potassium (3.4-5.1) mmol/L Chloride (98-107) mmol/L Carbon Dioxide (22-32) mmol/L BUN (9-20) mg/dL Creatinine (0.66-1.25) mg/dL Estimated GFR (>60) mL/min BUN/Creatinine Ratio (6-22) Glucose (80-110) mg/dL Calcium (8.4-10.2) mg/dL Total Bilirubin (0.2-1.3) mg/dL AST (17-59) IU/L ALT (<50) IU/L Alkaline Phosphatase (38-126) U/L Troponin I (0.01-0.034) ng/mL C-Reactive Protein 23.2 H (<1.0) mg/dL Total Protein (6.3-8.2) g/dL Albumin (3.5-5.0) g/dL Globulin (1.7-4.1) g/dL Albumin/Globulin Ratio (1.0-2.8) Urine RBC 10-30/hpf H (0-5/HPF) Urine WBC 5-10/hpf H (0-5/HPF) Urine Bacteria Many (>30) H (None) Ur Culture Indicated? Specimen cultured Urine Dip Bedside Urine Glucose Negative Bedside Urine Bilirubin - Negative Bedside Urine Ketone - Negative Urine Specific [place] 1.015 Bedside Urine Occult Blood +++ Bedside Urine pH 6.0 Bedside Urine Protein + 30 Bedside Urine Urobilinogen - Negative Bedside Urine Nitrite - Negative Bedside Urine Leukocytes +/- 15 Esterase Discharge Plan Departure Patient Disposition: [facility] Clinical Impression: Glioblastoma, Confusion Altered mental status Qualifiers: Altered mental status type: somnolence Qualified Code(s): R40.0 - Somnolence Fall Qualifiers: Encounter type: initial encounter Qualified Code(s): W19.XXXA - Unspecified fall, initial encounter Urinary tract infection Qualifiers: Urinary tract infection type: acute cystitis Hematuria presence: with hematuria Qualified Code(s): N30.01 - Acute cystitis with hematuria Discharge Date/Time: 08/12/19 22:05 Prescriptions: No Action aspirin 81 MG tablet,delayed release (DR/EC) 81 mg PO DAILY Qty: 0 RF: 0 hydrocodone-acetaminophen 5-325 mg tablet 1 - 2 tab PO QID PRN (Reason: Pain (Scale Score 4-6)) RF: 0 prednisone 20 mg tablet 20 mg PO DAILY RF: 0 prochlorperazine maleate 10 mg tablet 10 mg PO TID PRN (Reason: nausea / vomiting) RF: 0 ondansetron 8 mg tablet,disintegrating 8 mg PO QID PRN (Reason: Nausea) RF: 0 lorazepam 0.5 mg tablet 0.5 mg PO BID PRN (Reason: Anxiety) RF: 0 levetiracetam 750 mg tablet 750 mg PO BID RF: 0 Referrals: Kostas Ybarra MD [Primary Care Provider] - <Destin Finley MD - Last Filed: 08/13/19 15:19> Cosign ED Attending Cosignature Attestation: [id number]: Report was provided by Dr. Gaines. [id number]. The patient's knew that he had a new 11 mm mass in his cerebellum but the patient was asleep and was not informed until I informed him at this time. They would like me to call and discuss it with Dr. Ling his local oncologist at [facility]. 1320: Patient is a [facility] patient and it is taking all while to evaluate the patient. The patient and his wanted me to discuss the patient with the doctors who are taking care of him to make recommendations. [facility] is at [facility]. He is looking at the patient's MRI CT scans and will make recommendations. He initially stated that tumors appearing in the cerebellum may be metastatic disease from his glioblastoma. However, it may represent a metastatic lesion from another primary. He recommended that the patient have a CT scan of his chest abdomen and pelvis looking for another prima ry. He will call back after he looks at the MRIs. I discussed this with the patient and his and they wanted the CT scans performed. His GFR is greater than [address] scans with IV contrast has been ordered. Earlier today at approximately 10:00 a.m. I spoke with Dr. Mosley who was on-call for Dr. Berg. Dr. burch felt that at this time there was really nothing to offer this patient since he has had a glioblastoma that was surgically removed, received chemotherapy and radiation. He states that the patient cannot receive any more radiation. The patient has not been seen by Dr. Berg in the last 2 months. The patient is not receiving any further chemotherapy because he did not tolerate the medication. states that if this is metastatic glioblastoma with recurrence in the cerebellum his prognosis is very grave and poor. He recommended that the patient be referred to his primary care physician and arrangements made for hospice. I discussed this with the patient's who recommended that we call Dr. Kilgore and Dr. Tate at [facility]. [place] was contacted at 11:[address] [facility] neuro surgery and Dr. Tate call back. We are working the patient up according to the patient and his 's wishes as well as his neurosurgeon Dr. Tate. At this time we officially waiting for Dr. Tate to review the MRI from [facility] and call back with ron recommendations. In the meantime a CT without IV contrast of his chest abdomen and pelvis have been ordered. 1429: I just discussed the patient with the neurosurgical PA. He states that Dr. Tate feels that the patient needs to be admitted medically and worked up. He believes the osteo degenerative changes in his neck may represent a possible infection after looking at the CT scan himself. He also believes that the patient's MRI needs to be looked had a neuro radiologist because he is not sure this represents a tumor or a possible stroke. He believes that the patient needs a further medical evaluation. 1440: Dr. Tate's recommendation through the neurosurgery PA Rogelio was explained to the patient's into the patient. They are deciding what to do at the present time. 1449: The patient wants to follow Dr. Rojas recommendations and wants me to call the [place] physician to refer the patient for a medical admission for further evaluation. 1544: I discussed the patient with the [place] intake physician who was looking for a bed. The patient's urinalysis reveals 10-30 red blood cells per high- power field 5-10 white blood cells per high-power field many bacteria and the s pecimen is being cultured. This may be the source of the patient's elevated white blood count and his confusion and intermittent altered mental status according to the patient's . 2 g of cefepime will be administered to the patient. His inflammatory markers arm with an ESR of 70 is elevated and a CRP of 23.5 are elevated indicating that the patient has some type of inflammatory or infectious problem. The patient has an allergy to penicillin however the patient is being given a 4th generation cephalosporin for his urinary tract infection which has a low probability of cross-reactivity. He was given 25 mg of IV Benadryl for this low cross-reactivity. 1658: The [place] physician as discussed the physician with [facility] and we are currently waiting for [facility] to call back with a bed. The patient will be transferred to [facility]. The patient seems more awake and alert at this time. His lungs were clear and symmetrical. Heart regular rhythm and rate. Abdomen was soft and nontender. The patient was rolled over on his side and over the upper gluteal fold on the patient has an erythematous area that looks like it is mildly desquamated and could represent a Tori infection or an early pressure sore from sitting. 1715 Dr. Valverde from [place] called and stated that Dr. Wolf at [facility] in [place] has accepted the patient and they will be calling back when they have the room number and make arrangements for him to be transferred/ transported to the hospital.
[2019-08-12 11:53] LABS: Add Manual Diff / Slide Review NO; Basophils Absolute Auto 100 /uL (0-100); Basophils Percent Auto 0.9 % (0-2); Eosinophils Absolute Auto 0 /uL (0-450); Eosinophils Percent Auto 0.1 % (2-4); Hematocrit 36.3 % (41-53); Hemoglobin 12.5 g/dL (13.5-17.5); Lymphocytes Absolute Auto 600 /uL (1100-4500); Lymphocytes Percent Auto 4.7 % (25-40); Mean Corpuscular HGB Conc 34.5 % (30-36); Mean Corpuscular Hemoglobin 31.3 PG (26-34); Mean Corpuscular Volume 90.7 fL (80-100); Monocytes Absolute Auto 900 /uL (0-900); Monocytes Percent Auto 7.2 % (3-14); Neutrophils Absolute Auto 11400 /uL (1500-7000); Neutrophils Percent Auto 87.1 % (50-75); Platelet Count 130 X10^3/uL (150-400); Red Cell Distribution Width 14.6 % (11.6-14.8); White Blood Cell Count 13.1 X10^3/uL (4.5-11.0)
[2019-08-12 11:57] LABS: Alanine Aminotransferase 101 IU/L (<50); Albumin 3.4 g/dL (3.5-5.0); Albumin Globulin Ratio 0.9 (1.0-2.8); Alkaline Phosphatase 203 U/L (38-126); Aspartate Aminotransferase 62 IU/L (17-59); BUN Creatinine Ratio 27.3 (6-22); Bilirubin Total 1.1 mg/dL (0.2-1.3); Blood Urea Nitrogen 21 mg/dL (9-20); Calcium 9.7 mg/dL (8.4-10.2); Carbon Dioxide 25 mmol/L (22-32); Chloride 98 mmol/L (98-107); Estimated Glomerular Filt Rate > 60.0 mL/min (>60); Globulin 3.9 g/dL (1.7-4.1); Glucose 160 mg/dL (80-110); HEMOLYSIS < 15 (0-50); Potassium 4.2 mmol/L (3.4-5.1); Sodium 140 mmol/L (137-145); Total Protein 7.3 g/dL (6.3-8.2)
[2019-08-12 12:08] LABS: Troponin I 0.012 ng/mL (0.01-0.034)
--- NOTE | 2019-08-12 13:17 | DI.CT.S_ITS ---
PROCEDURE: CT CHEST ABD PEL W CON INDICATIONS: screen for primary source of cancer for new cerebellar tumo TECHNIQUE: After the administration of oral and intravenous contrast, 5 mm thick sections acquired from the lung apices to the symphysis. 5 mm coronal and sagittal reformats were performed, with additional 7 mm coronal MIP reformats through the lungs. For radiation dose reduction, the following was used: automated exposure control, adjustment of mA and/or kV according to patient size. COMPARISON: [facility], CT, IVP (ABD & PEL WWO CONTRAST), 06/15/2016, 13:22. [facility], CT, CT ANGIO CHEST PE PROTOCOL, 07/17/2019, 21:27. [facility], CT, CT CERVICAL SPINE WO CON, 08/12/2019, 6:31. [facility], CT, CT HEAD/BRAIN WO CON, 08/12/2019, 6:31. [facility], CT, CHEST/ABD/PEL WITH CONTRAST, 06/01/2017, 9:01. FINDINGS: Image quality: Excellent. CHEST: Lungs and pleura: No acute airspace opacities. No pleural effusions or pneumothorax. Central and peripheral airways appear patent and normal in caliber. Mediastinum: An aortic valve prosthesis is seen. Coronary artery calcifications are seen. Heart size is normal. No pericardial effusion. No mediastinal or hilar adenopathy by size criteria. Thoracic aorta and central pulmonary arteries are normal in size. Esophagus is normal in caliber. No hiatal hernia. Chest wall: No axillary or supraclavicular adenopathy by size criteria. Thyroid gland demonstrates no significant CT abnormality. Sternotomy wires are seen. ABDOMEN: Solid organs: Liver is normal in size and enhancement. Gallbladder demonstrates potential layering gallstones, as on series 2 image 63. Biliary system is non dilated. Pancreas enhances normally. The spleen is abnormal, with wedge-shaped areas of low-density. Incidental note is made of an accessory splenule along the hilum of the primary spleen. Within the liver, there are poorly defined areas of low density, with apparent peripheral puddling of contrast, which appear similar to 2018. No adrenal nodules. There is a nonobstructing 12 mm stone seen within the left proximal ureter, as on series 2 image 88. There is associated sided hydroureter and hydronephrosis with perinephric straining. There is a nonobstructing 6 mm stone within the left kidney. No obstructing right-sided kidney stones are seen that measure up to 2 mm. There is a simple appearing water density right renal cyst seen that measures 5.5 cm. No right-sided hydronephrosis. Peritoneum and bowel: Bowel loops demonstrate normal wall thickness and caliber. No free fluid or air. Nodes and vessels: No retroperitoneal or mesenteric adenopathy by size criteria. Aorta and inferior vena cava are normal in size. 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 Atherosclerotic calcification is noted. Miscellaneous: No ventral hernias. PELVIS: Genitourinary: Bladder wall thickness is normal. Miscellaneous: No inguinal adenopathy. Small fat containing inguinal hernias are seen. Bones: No suspicious bony lesions. No vertebral body compression fractures. Mild dextroconvex scoliotic curvature is seen. Age-appropriate bony degenerative changes are seen. IMPRESSION: No primary masses are identified. 12 mm obstructing stone within the left proximal ureter. Nonobstructing kidney stones can be seen. Abnormal spleen, with wedge-shaped areas of low density, likely related to infarction. Differential diagnosis includes underlying splenic masses, however. Apparent liver hemangiomas again seen, which appear stable. Potential layering gallstones can be seen. Incidental note is made of: Sternotomy wires with aortic valve prosthesis Accessory splenule Simple right renal cyst Coronary artery calcification Duplicated IVC Bilateral fat containing inguinal hernias Dictated by: Brady Mandujano M.D. on 08/12/2019 at 13:04 Approved by: Brady Mandujano M.D. on 08/12/2019 at 13:12
[2019-08-12] MEDS: SODIUM CHLORIDE 0.9% 1,000 ML 1000 ML IV (14:05)
[2019-08-12] MEDS: HYDROCODONE/ACET 5/325 TABLET 2 TAB PO (14:28)
[2019-08-12 15:04] LABS: C-Reactive Protein Quant 23.2 mg/dL (<1.0)
[2019-08-12 15:11] LABS: Erythrocyte Sedimentation Rate 70 MM/HR (0-15)
[2019-08-12 15:15] LABS: Bacteria Urine Many (>30); Culture Indicated Urine Specimen Cultured; RBC Urine 10-30/HPF (0-5/HPF); WBC Urine 5-10/HPF (0-5/HPF)
[2019-08-12] MEDS: CEFEPIME 2 GM in SODIUM CHLORIDE 0.9% 100 ML 200 ML IV (15:53)
[2019-08-12] MEDS: diphenhydrAMINE 50 MG/ML VIAL 25 MG IV (15:54)
[2019-08-12] MEDS: levETIRAcetam 250 MG TABLET 750 MG PO (16:13)
[2019-08-12] MEDS: predniSONE 20 MG TABLET PO (16:13)
--- NOTE | 2019-08-12 19:09 | PC.NURSE ---
At this time I spoke with the patient's Marla on the phone and updated her on transfer.
--- NOTE | 2019-08-12 19:40 | PC.NURSE ---
Report given to NATALIO Valle at [facility].
== END 2019-08-12 22:05 | disposition short-term general hospital (02) ==
PROVIDERS: Emergency Medicine; Emergency Provider Emergency Medicine; Family Provider Family Medicine; PCP Family Medicine
DX: C71.9 Malignant neoplasm of brain, unspecified (principal); R40.0 Somnolence; N30.01 Acute cystitis with hematuria; R41.0 Disorientation, unspecified; I25.10 Atherosclerotic heart disease of native coronary artery without angina pectoris; Z95.4 Presence of other heart-valve replacement
CPT/HCPCS: 36415; 70450; 71260; 72125; 74177; 80053; 81003; 81015; 84484; 85025; 85651; 86140; 87077; 87086; 87186; 96365; 96375; 99285; J0692; J1200; Q9967

== ENCOUNTER → 2020-04-11 14:43 | Outpatient (CLI) | payer OTHER, SELFPAY ==
--- NOTE | 2020-04-11 | DI.US.S_ITS ---
PROCEDURE: US RENAL COMPLETE INDICATIONS: N20.1. Evaluate kidneys. TECHNIQUE: Real-time scanning was performed of the kidneys and bladder, with image documentation. COMPARISON: [facility], CT, CT CHEST ABD PEL W CON, 08/12/2019, 13:39. FINDINGS: Kidneys: Kidneys are normal in size. Right kidney measures 12 cm long; left kidney measures 12.6 cm long. Right renal cortical thickness is 1.6 cm; left renal cortical thickness is 2.1 cm. Renal cortical echotexture is normal. No hydronephrosis or nephrolithiasis. No suspicious solid mass lesions. Simple superior pole right renal cyst measuring 5.5 cm. Left percutaneous nephrostomy tube present. Bladder: Pre-void bladder volume is 91 mL. Post-void residual is not evaluated Pre-void images demonstrate no intraluminal masses or stones. On pre-void images, bilateral ureteral jets are noted with color Doppler interrogation. (Of note, ureteral jets may not be detectable in up to 25% of cases due to insufficient differences in specific gravity between ureteral and bladder urine). Miscellaneous: No free pelvic fluid. IMPRESSION: 1. Right superior pole simple renal cyst. 2. No hydronephrosis. Left percutaneous nephrostomy tube. Dictated by: Tucker SOMERS Interpreted: Malcolm Ashley MD on 04/11/2020 at 16:36 Approved by: Malcolm Ashley M.D. on 04/11/2020 at 17:11
== END ==
PROVIDERS: Family Provider Family Medicine; PCP Family Medicine; Referring Provider Family Medicine; Visit Provider Family Medicine
DX: N20.1 Calculus of ureter (principal)
CPT/HCPCS: 76770

== ENCOUNTER 2020-08-23 09:00 | Outpatient (RCR) | payer OTHER, SELFPAY ==
--- NOTE | 2020-08-01 16:02 | PT.OIE ---
Current Diagnoses Malignant neoplasm of brain, unspecified (08/01/20) Past Medical History (Last Reviewed 08/12/19 @ 07:14 by Debbie Gaines MD) Coronary artery disease Glioblastoma Past Surgical History (Last Reviewed 08/12/19 @ 07:14 by Debbie Gaines MD) S/P AVR (aortic valve replacement) (~07/27/17) S/P CABG x 2 (~07/27/17) Visit Care Team Role Provider Type Kostas Ybarra MD Attending Provider Physician Primary Care Provider Referring Provider Specialty: Family Practice Address: [address] [place] [address], [facility] [place], [facility] Email: [email or web address] Physical Therapy Initial Evaluation PT-OP-A Visit Information Start: 07/30/20 12:24 Freq: Status: Active Protocol: Document 08/01/20 10:29 MB (Rec: 08/01/20 10:50 MB [id number]) Out-Patient Physical Therapy Visit Information Visit Information Visit Type Initial Evaluation Visit Note Pt arrives with his , Marla [employer] of [place] Visit Start Time 10:29 Visit Stop Time 11:14 Total Visit Minutes 45 Visit Number 1 Evaluation Information Evaluation Date 08/01/20 Precautions Precautions Fall risk PT-OP-B Current Condition Start: 07/30/20 12:24 Freq: Status: Active Protocol: Document 08/01/20 10:29 MB (Rec: 08/01/20 10:50 MB [id number]) Current Condition History of Current Condition Onset Date February 2019 Current Complaints Imbalance History of Current Condition Pt and reports seizures 02/20/2019 and pt was transported to the hospital and was found to have right sided frontotemporal glioblastoma. He underwent craniotomies Feb 2019 and 2019 . states that the mass is growing. He will have another treatment soon. Pt underwent double bypass and heart valve surgery in 2017. He underwent left ureter surgery in 2019. PMH includes DM, blood infection, PE 2017, HAs over surgical area, and and pt did not fill out history form and extensive history is not available in EMR. Pt reports history of blacking out, at least once this year after getting COVID shot. He reports occ light-headedness and dizziness. Pt carries cane in his right hand. Pt and report that pt is weak and imbalanced. He states, I have to think to think. states that he has trouble focusing on projects. She reports his short-term is off. Prior Treatments and Tests PT for cardiac rehab Treatment Goals Patient/Caregiver Goals To be able to walk again without feeling like I am going to fall immediately PT-OP-C Subjective Start: 07/30/20 12:24 Freq: Status: Active Protocol: Document 08/01/20 10:29 MB (Rec: 08/01/20 10:50 MB [id number]) OP-PT Subjective Patient Comments Patient Comments See history of current condition PT-OP-D Balance Start: 07/30/20 12:24 Freq: Status: Active Protocol: Document 08/01/20 10:29 MB (Rec: 08/01/20 16:02 MB [id number]) OP-PT Balance Assessment Sitting Balance Static Sitting Balance Ability Good Dynamic Sitting Balance Ability Good Standing Balance Static Standing Balance Ability Good Dynamic Standing Balance Ability Fair Balance Tests Romberg Romberg EO 30 sec and EC 10 sec and then pt reopens eyes Menendez Fall Scale Copyright Permission PT-OP-G Mobility & Gait Start: 07/30/20 12:24 Freq: Status: Active Protocol: Document 08/01/20 10:29 MB (Rec: 08/01/20 16:02 MB [id number]) OP Gait Assessment Gait Gait Assistance Required: Standby Assistance Distance (Feet) 50 Able to Maintain Weight Bearing Status Yes During Gait Assistive Devices Assistive Device None,Straight Cane Orthotic/Prosthetic Devices or Brace: No Gait Deviations General Gait Pattern Decreased Stride Length,Flexed Trunk,Wide Based Gait Factors Limiting Gait Function Factors Limiting Gait Function Decreased Strength,Poor Balance Comments Gait Comments Pt arrives carrying heavy straight cane in right hand and is able to gait train with superv with this. He gait trains 50'. During assessment, he gait trains with SBA from PT and presents with wide DEVON, decreased toe off and occ increased proximal weakness with either leg with different steps. PT-OP-H Neuro Start: 07/30/20 12:24 Freq: Status: Active Protocol: Document 08/01/20 10:29 MB (Rec: 08/01/20 16:02 MB [id number]) Sensation Evaluation Gross Sensation Gross Sensation WNL Coordination Evaluation Upper Extremity Tests Right Pronation/Supination Test Normal Performance Left Pronation/Supination Test Normal Performance Lower Extremity Tests Right Foot Tapping Test Normal Performance Left Foot Tapping Test Normal Performance Vital Signs Comments Vital Signs Comments Orthostatic assessment is negative with BP and HR in LUE : supine 129/85, 73 and standing 136/87, 83 and machine not reading accurately on third reading PT-OP-K Range of Motion Start: 07/30/20 12:24 Freq: Status: Active Protocol: Document 08/01/20 10:29 MB (Rec: 08/01/20 16:02 MB [id number]) Shoulder Goniometric Range of Motion Shoulder ROM Limitations Comments B UE and LE ROM in sitting is WNLs PT-OP-M Strength Start: 07/30/20 12:24 Freq: Status: Active Protocol: Document 08/01/20 10:29 MB (Rec: 08/01/20 16:02 MB [id number]) Hip Strength Hip Manual Muscle Testing Left Flexion (L2) 3+ Fair+ Abduction 4 Good Right Flexion (L2) 3+ Fair+ Abduction 4 Good Knee Strength Knee Manual Muscle Testing Left Flexion (S2) 4 Good Extension (L3) 4 Good Right Flexion (S2) 4 Good Extension (L3) 4 Good Ankle/Foot Strength Ankle and Foot Manual Muscle Testing Left Dorsiflexion (L4) 4 Good Right Dorsiflexion (L4) 4 Good Toe Strength Toe Manual Muscle Testing Right Great Toe Extension 4 Good Left Great Toe Extension 3+ Fair+ PT-OP-Q Treatments Start: 07/30/20 12:24 Freq: Status: Active Protocol: Document 08/01/20 10:29 MB (Rec: 08/01/20 16:02 MB [id number]) Self-Care/Home Management Treatment Education Other Education Pt and education: signs and symptoms of and reasoning for checking for orthostatic hypotension, importance of focusing on quality of life and thinking about if there is any activity that he wants to be able to do, that PT can work towards this, ed on benefits of teaching recumbent stepper machine for exercise to help with cardio and LE strength in a safe manner in case he would like think about one for home, ed that plan for PT will be to find some things that challenge him and help him strengthen but do not anticipating a huge improvement in balance d/t recurrent brain tumor. Provided card for community OT who assesses homes for needed safety changes such as rail in shower as pt states that he feels that he is going to fall over in the shower PT-OP-T Assessment and Plan Start: 07/30/20 12:24 Freq: Status: Active Protocol: Document 08/01/20 10:29 MB (Rec: 08/01/20 16:02 MB [id number]) Physical Therapy Assessment Rehab Potential Rehabilitation Potential Fair Evaluation Complexity Number of Personal Factors/Comorbidities 1-2 Number of Body Systems Impaired 3 Clinical Presentation at Evaluation Unstable Impairments Impairments Activity Tolerance,Balance, Functional Activities, Functional Mobility,Gait,Pain, Posture,Strength Other Impairments Personal factors include decreased short-term memory. Body systems affected include cardiopulmonary, neurological, cognitive and musculoskeletal . His glioblastoma is recurring and growing per and so his clinical presentation is unstable. Other Concerns Fall Risk Yes Goals 4 Veneer Sheet Repairer Goal (LTG) Pt will perform HEP with superv to improve functional strength, safety, gait and balance by 10/01/20. LTG Duration 8 weeks 3 Veneer Sheet Repairer Goal (LTG) Pt will gait train at least 1200 feet in 6 minutes with LRAD to improve community ambulation and decrease fall risk by 10/01/20. LTG Duration 8 weeks 2 Veneer Sheet Repairer Goal (LTG) Pt will perform at least 10 reps sit to division traffic superintendent 30 sec without UE support to demonstrate improved functional strength of LEs by 10/01/20. LTG Duration 8 weeks 1 Detention Goal (LTG) Pt will perform WNLs on Tinetti with use of LRAD to decrease fall risk by 10/01/20. LTG Duration 8 weeks Assessment Summary Assessment Pt is a 70 y/o male presenting with weakness, imbalance and decreased gait in setting of glioblastoma. His B active UE and LE ROM is grossly equal and normal. His right pupil has mild decreased constriction, he has normal oculomotor and coordination screenings today. He presents with B LE weakness, slightly more on the left and decreased confidence with Romberg with EC. He will benefit from PT for education, strengthening, gait and balance. His clinical presentation is evolving in setting of recurring glioblastoma and this is a barrier to PT. His is very supportive and may come to PT appointments. Orthostatic testing is negative today. He reports a history of seizures and blacking out. Physical Therapy Plan Frequency and Duration Frequency of Treatment 2x/wk to tolerance Duration of Treatment 8 weeks Plan of Care Start Date 08/01/20 Plan of Care End Date 10/01/20 Therapeutic Interventions Therapeutic Interventions Balance Training,Canalithic Repositioning,Coordination Training,Gait Training,Home Exercise Program,Manual Therapy,Neuromuscular Re- education,Patient/Caregiver Education,Self-Care/Home Management,Therapeutic Activities,Therapeutic Exercises Modalities Cold Pack/Ice Massage,Hot Packs Next Visit Focus/Plan Next Note Type Treatment Note Next Visit Plan Teach recumbent stepper, assess sit to stands, teach Buteyko breathing, 6MWT, sitting LE strengthening with bands and a balance exercise
--- NOTE | 2020-08-01 16:03 | PT.OPPOC ---
Physical, Occupational & Speech Therapy At [facility] Current Diagnoses Malignant neoplasm of brain, unspecified (08/01/20) Visit Care Team Role Provider Type Kostas Ybarra MD Attending Provider Physician Primary Care Provider Referring Provider Specialty: Family Practice Address: [address] [place] [address], [facility] [place], [address] Email: [email or web address] Plan Of Care PT-OP-T Assessment and Plan Start: 07/30/20 12:24 Freq: Status: Active Protocol: Document 08/01/20 10:29 MB (Rec: 08/01/20 16:02 MB [id number]) Physical Therapy Assessment Rehab Potential Rehabilitation Potential Fair Evaluation Complexity Number of Personal Factors/Comorbidities 1-2 Number of Body Systems Impaired 3 Clinical Presentation at Evaluation Unstable Impairments Impairments Activity Tolerance,Balance, Functional Activities, Functional Mobility,Gait,Pain, Posture,Strength Other Impairments Personal factors include decreased short-term memory. Body systems affected include cardiopulmonary, neurological, cognitive and musculoskeletal . His glioblastoma is recurring and growing per and so his clinical presentation is unstable. Other Concerns Fall Risk Yes Goals 4 Seconds Inspector Goal (LTG) Pt will perform HEP with superv to improve functional strength, safety, gait and balance by 10/01/20. LTG Duration 8 weeks 3 Snf Goal (LTG) Pt will gait train at least 1200 feet in 6 minutes with LRAD to improve community ambulation and decrease fall risk by 10/01/20. LTG Duration 8 weeks 2 Snf Goal (LTG) Pt will perform at least 10 reps sit to pot reliner 30 sec without UE support to demonstrate improved functional strength of LEs by 10/01/20. LTG Duration 8 weeks 1 Seconds Inspector Goal (LTG) Pt will perform WNLs on Tinetti with use of LRAD to decrease fall risk by 10/01/20. LTG Duration 8 weeks Assessment Summary Assessment Pt is a 70 y/o male presenting with weakness, imbalance and decreased gait in setting of glioblastoma. His B active UE and LE ROM is grossly equal and normal. His right pupil has mild decreased constriction, he has normal oculomotor and coordination screenings today. He presents with B LE weakness, slightly more on the left and decreased confidence with Romberg with EC. He will benefit from PT for education, strengthening, gait and balance. His clinical presentation is evolving in setting of recurring glioblastoma and this is a barrier to PT. His is very supportive and may come to PT appointments. Orthostatic testing is negative today. He reports a history of seizures and blacking out. Physical Therapy Plan Frequency and Duration Frequency of Treatment 2x/wk to tolerance Duration of Treatment 8 weeks Plan of Care Start Date 08/01/20 Plan of Care End Date 10/01/20 Therapeutic Interventions Therapeutic Interventions Balance Training,Canalithic Repositioning,Coordination Training,Gait Training,Home Exercise Program,Manual Therapy,Neuromuscular Re- education,Patient/Caregiver Education,Self-Care/Home Management,Therapeutic Activities,Therapeutic Exercises Modalities Cold Pack/Ice Massage,Hot Packs Next Visit Focus/Plan Next Note Type Treatment Note Next Visit Plan Teach recumbent stepper, assess sit to stands, teach Buteyko breathing, 6MWT, sitting LE strengthening with bands and a balance exercise Plan of Care Dates Plan of Care Start Date 08/01/20 Plan of Care End Date 10/01/20 Electronically Signed by: Shania Dolan, PT 08/01/20 [id number] Please Sign and Return: I have reviewed this Plan of Care and certify that the skilled therapy services above are required to meet the patient?s needs. Physician Signature Date Printed Name and Credentials Clinical Instructor Signature Printed Name and Credentials
--- NOTE | 2020-08-02 15:12 | PT.OTN ---
Current Diagnoses Malignant neoplasm of brain, unspecified (08/02/20) Physical Therapy Treatment Note PT-OP-A Visit Information Start: 07/30/20 12:24 Freq: Status: Active Protocol: Document 08/02/20 09:47 MB (Rec: 08/02/20 10:30 MB [id number]) Out-Patient Physical Therapy Visit Information Visit Information Visit Type Treatment Note Visit Note Pt goes by Km. His is Marla. Visit Start Time 09:47 Visit Stop Time 10:30 Total Visit Minutes 43 Visit Number 2 PT-OP-B Current Condition Start: 07/30/20 12:24 Freq: Status: Active Protocol: Document 08/01/20 10:29 MB (Rec: 08/01/20 10:50 MB [id number]) Current Condition History of Current Condition Onset Date February 2019 Current Complaints Imbalance History of Current Condition Pt and reports seizures 02/20/2019 and pt was transported to the hospital and was found to have right sided frontotemporal glioblastoma. He underwent craniotomies Feb 2019 and 2019 . states that the mass is growing. He will have another treatment soon. Pt underwent double bypass and heart valve surgery in 2017. He underwent left ureter surgery in 2019. PMH includes DM, blood infection, PE 2017, HAs over surgical area, and and pt did not fill out history form and extensive history is not available in EMR. Pt reports history of blacking out, at least once this year after getting COVID shot. He reports occ light-headedness and dizziness. Pt carries cane in his right hand. Pt and report that pt is weak and imbalanced. He states, I have to think to think. states that he has trouble focusing on projects. She reports his short-term is off. Prior Treatments and Tests PT for cardiac rehab Treatment Goals Patient/Caregiver Goals To be able to walk again without feeling like I am going to fall immediately PT-OP-C Subjective Start: 07/30/20 12:24 Freq: Status: Active Protocol: Document 08/02/20 09:47 MB (Rec: 08/02/20 10:30 MB [id number]) OP-PT Subjective Patient Comments Patient Comments Pt has no new complaints. PT-OP-D Balance Start: 07/30/20 12:24 Freq: Status: Active Protocol: Document 08/01/20 10:29 MB (Rec: 08/01/20 16:02 MB [id number]) OP-PT Balance Assessment Sitting Balance Static Sitting Balance Ability Good Dynamic Sitting Balance Ability Good Standing Balance Static Standing Balance Ability Good Dynamic Standing Balance Ability Fair Balance Tests Romberg Romberg EO 30 sec and EC 10 sec and then pt reopens eyes Menendez Fall Scale Copyright Permission PT-OP-G Mobility & Gait Start: 07/30/20 12:24 Freq: Status: Active Protocol: Document 08/01/20 10:29 MB (Rec: 08/01/20 16:02 MB [id number]) OP Gait Assessment Gait Gait Assistance Required: Standby Assistance Distance (Feet) 50 Able to Maintain Weight Bearing Status Yes During Gait Assistive Devices Assistive Device None,Straight Cane Orthotic/Prosthetic Devices or Brace: No Gait Deviations General Gait Pattern Decreased Stride Length,Flexed Trunk,Wide Based Gait Factors Limiting Gait Function Factors Limiting Gait Function Decreased Strength,Poor Balance Comments Gait Comments Pt arrives carrying heavy straight cane in right hand and is able to gait train with superv with this. He gait trains 50'. During assessment, he gait trains with SBA from PT and presents with wide DEVON, decreased toe off and occ increased proximal weakness with either leg with different steps. PT-OP-H Neuro Start: 07/30/20 12:24 Freq: Status: Active Protocol: Document 08/01/20 10:29 MB (Rec: 08/01/20 16:02 MB [id number]) Sensation Evaluation Gross Sensation Gross Sensation WNL Coordination Evaluation Upper Extremity Tests Right Pronation/Supination Test Normal Performance Left Pronation/Supination Test Normal Performance Lower Extremity Tests Right Foot Tapping Test Normal Performance Left Foot Tapping Test Normal Performance Vital Signs Comments Vital Signs Comments Orthostatic assessment is negative with BP and HR in LUE : supine 129/85, 73 and standing 136/87, 83 and machine not reading accurately on third reading PT-OP-K Range of Motion Start: 07/30/20 12:24 Freq: Status: Active Protocol: Document 08/01/20 10:29 MB (Rec: 08/01/20 16:02 MB [id number]) Shoulder Goniometric Range of Motion Shoulder ROM Limitations Comments B UE and LE ROM in sitting is WNLs PT-OP-M Strength Start: 07/30/20 12:24 Freq: Status: Active Protocol: Document 08/01/20 10:29 MB (Rec: 08/01/20 16:02 MB [id number]) Hip Strength Hip Manual Muscle Testing Left Flexion (L2) 3+ Fair+ Abduction 4 Good Right Flexion (L2) 3+ Fair+ Abduction 4 Good Knee Strength Knee Manual Muscle Testing Left Flexion (S2) 4 Good Extension (L3) 4 Good Right Flexion (S2) 4 Good Extension (L3) 4 Good Ankle/Foot Strength Ankle and Foot Manual Muscle Testing Left Dorsiflexion (L4) 4 Good Right Dorsiflexion (L4) 4 Good Toe Strength Toe Manual Muscle Testing Right Great Toe Extension 4 Good Left Great Toe Extension 3+ Fair+ PT-OP-Q Treatments Start: 07/30/20 12:24 Freq: Status: Active Protocol: Document 08/02/20 09:47 MB (Rec: 08/02/20 10:30 MB [id number]) Gait Training Gait Activity 6MWT Comments Pt gait trains 742 feet with rollator and CGA, use of rollator and gait belt. Pt has trouble remembering walking path going clockwise, occ runs into objects on the right, he has scuffing of left foot and occ imbalance. One rest break with cues for how to lock rollator and sit x2. Second trial counterclockwise and sitting rest break in another chair and cues for backing up to the chair, locking walking and reaching back for chair before sitting. 553' this trial and pt occ veering to the right outside path and unsure if d/t cognition/attention vs control of balance and rollator. Second stand to sit to chair from rollator with cues and pt is able to perform. Pt gait trains to car with SBA with rollator and PT and pt and agree that this is the best AD for him to walk with given ability to more steadily and equally weight bare. to get rollator from soroptomist Gait training includes safe use of rollator for gait indoors and outdoors and with transfers today PT-OP-T Assessment and Plan Start: 07/30/20 12:24 Freq: Status: Active Protocol: Document 08/02/20 09:47 MB (Rec: 08/02/20 10:30 MB [id number]) Physical Therapy Assessment Rehab Potential Rehabilitation Potential Fair Evaluation Complexity Number of Personal Factors/Comorbidities 1-2 Number of Body Systems Impaired 3 Clinical Presentation at Evaluation Unstable Impairments Impairments Activity Tolerance,Balance, Functional Activities, Functional Mobility,Gait,Pain, Posture,Strength Other Impairments Personal factors include decreased short-term memory. Body systems affected include cardiopulmonary, neurological, cognitive and musculoskeletal . His glioblastoma is recurring and growing per and so his clinical presentation is unstable. Other Concerns Fall Risk Yes Goals 4 Mill And Coal Transport Operator Goal (LTG) Pt will perform HEP with superv to improve functional strength, safety, gait and balance by 10/01/20. LTG Duration 8 weeks 3 Residential Goal (LTG) Pt will gait train at least 1200 feet in 6 minutes with LRAD to improve community ambulation and decrease fall risk by 10/01/20. LTG Duration 8 weeks 2 Residential Goal (LTG) Pt will perform at least 10 reps sit to online user experience strategist 30 sec without UE support to demonstrate improved functional strength of LEs by 10/01/20. LTG Duration 8 weeks 1 Mill [employer] Coal Transport Operator Goal (LTG) Pt will perform WNLs on Tinetti with use of LRAD to decrease fall risk by 10/01/20. LTG Duration 8 weeks Assessment Summary Assessment Initiated gait training with rollator today and pt presents with some challenges with safety awareness, carryover with gait path and LLE foot drag. His gait is much better with the rollator compared to his heavier cane in right hand . Physical Therapy Plan Frequency and Duration Frequency of Treatment 2x/wk to tolerance Duration of Treatment 8 weeks Plan of Care Start Date 08/01/20 Plan of Care End Date 10/01/20 Therapeutic Interventions Therapeutic Interventions Balance Training,Canalithic Repositioning,Coordination Training,Gait Training,Home Exercise Program,Manual Therapy,Neuromuscular Re- education,Patient/Caregiver Education,Self-Care/Home Management,Therapeutic Activities,Therapeutic Exercises Modalities Cold Pack/Ice Massage,Hot Packs Next Visit Focus/Plan Next Note Type Treatment Note Next Visit Plan Teach recumbent stepper, assess sit to stands, teach Buteyko breathing, repeat 6MWT , sitting LE strengthening with bands and a balance exercise
--- NOTE | 2020-08-05 09:50 | PT.OTN ---
Current Diagnoses Malignant neoplasm of brain, unspecified (08/05/20) Physical Therapy Treatment Note PT-OP-A Visit Information Start: 07/30/20 12:24 Freq: Status: Active Protocol: Document 08/05/20 09:03 MB (Rec: 08/05/20 09:20 MB [id number]) Out-Patient Physical Therapy Visit Information Visit Information Visit Type Treatment Note Visit Note Pt goes by Km. His is Marla. Visit Start Time 09:03 Visit Stop Time 09:45 Total Visit Minutes 42 Visit Number 3 PT-OP-B Current Condition Start: 07/30/20 12:24 Freq: Status: Active Protocol: Document 08/01/20 10:29 MB (Rec: 08/01/20 10:50 MB [id number]) Current Condition History of Current Condition Onset Date February 2019 Current Complaints Imbalance History of Current Condition Pt and reports seizures 02/20/2019 and pt was transported to the hospital and was found to have right sided frontotemporal glioblastoma. He underwent craniotomies Feb 2019 and 2019 . states that the mass is growing. He will have another treatment soon. Pt underwent double bypass and heart valve surgery in 2017. He underwent left ureter surgery in 2019. PMH includes DM, blood infection, PE 2018, HAs over surgical area, and and pt did not fill out history form and extensive history is not available in EMR. Pt reports history of blacking out, at least once this year after getting COVID shot. He reports occ light-headedness and dizziness. Pt carries cane in his right hand. Pt and report that pt is weak and imbalanced. He states, I have to think to think. states that he has trouble focusing on projects. She reports his short-term is off. Prior Treatments and Tests PT for cardiac rehab Treatment Goals Patient/Caregiver Goals To be able to walk again without feeling like I am going to fall immediately PT-OP-C Subjective Start: 07/30/20 12:24 Freq: Status: Active Protocol: Document 08/05/20 09:03 MB (Rec: 08/05/20 09:20 MB [id number]) OP-PT Subjective Patient Comments Patient Comments Pt states that he is off today . He woke up with a bad headache. Thinking a lot and some movements make the headache worse. PT-OP-D Balance Start: 07/30/20 12:24 Freq: Status: Active Protocol: Document 08/01/20 10:29 MB (Rec: 08/01/20 16:02 MB [id number]) OP-PT Balance Assessment Sitting Balance Static Sitting Balance Ability Good Dynamic Sitting Balance Ability Good Standing Balance Static Standing Balance Ability Good Dynamic Standing Balance Ability Fair Balance Tests Romberg Romberg EO 30 sec and EC 10 sec and then pt reopens eyes Menendez Fall Scale Copyright Permission PT-OP-G Mobility & Gait Start: 07/30/20 12:24 Freq: Status: Active Protocol: Document 08/01/20 10:29 MB (Rec: 08/01/20 16:02 MB [id number]) OP Gait Assessment Gait Gait Assistance Required: Standby Assistance Distance (Feet) 50 Able to Maintain Weight Bearing Status Yes During Gait Assistive Devices Assistive Device None,Straight Cane Orthotic/Prosthetic Devices or Brace: No Gait Deviations General Gait Pattern Decreased Stride Length,Flexed Trunk,Wide Based Gait Factors Limiting Gait Function Factors Limiting Gait Function Decreased Strength,Poor Balance Comments Gait Comments Pt arrives carrying heavy straight cane in right hand and is able to gait train with superv with this. He gait trains 50'. During assessment, he gait trains with SBA from PT and presents with wide DEVON, decreased toe off and occ increased proximal weakness with either leg with different steps. PT-OP-H Neuro Start: 07/30/20 12:24 Freq: Status: Active Protocol: Document 08/01/20 10:29 MB (Rec: 08/01/20 16:02 MB [id number]) Sensation Evaluation Gross Sensation Gross Sensation WNL Coordination Evaluation Upper Extremity Tests Right Pronation/Supination Test Normal Performance Left Pronation/Supination Test Normal Performance Lower Extremity Tests Right Foot Tapping Test Normal Performance Left Foot Tapping Test Normal Performance Vital Signs Comments Vital Signs Comments Orthostatic assessment is negative with BP and HR in LUE : supine 129/85, 73 and standing 136/87, 83 and machine not reading accurately on third reading PT-OP-K Range of Motion Start: 07/30/20 12:24 Freq: Status: Active Protocol: Document 08/01/20 10:29 MB (Rec: 08/01/20 16:02 MB [id number]) Shoulder Goniometric Range of Motion Shoulder ROM Limitations Comments B UE and LE ROM in sitting is WNLs PT-OP-M Strength Start: 07/30/20 12:24 Freq: Status: Active Protocol: Document 08/01/20 10:29 MB (Rec: 08/01/20 16:02 MB [id number]) Hip Strength Hip Manual Muscle Testing Left Flexion (L2) 3+ Fair+ Abduction 4 Good Right Flexion (L2) 3+ Fair+ Abduction 4 Good Knee Strength Knee Manual Muscle Testing Left Flexion (S2) 4 Good Extension (L3) 4 Good Right Flexion (S2) 4 Good Extension (L3) 4 Good Ankle/Foot Strength Ankle and Foot Manual Muscle Testing Left Dorsiflexion (L4) 4 Good Right Dorsiflexion (L4) 4 Good Toe Strength Toe Manual Muscle Testing Right Great Toe Extension 4 Good Left Great Toe Extension 3+ Fair+ PT-OP-Q Treatments Start: 07/30/20 12:24 Freq: Status: Active Protocol: Document 08/05/20 09:03 MB (Rec: 08/05/20 09:20 MB [id number]) Cardio Equipment Recumbent Elliptical (Biodex) Duration (Minutes) 10 Resistance 2 Seat Position 13 Other UE and LE use Therapeutic Exercises Sitting Exercises Sit to stands Sitting Exercise Name Performed, ed pt, made handout and ed after tx about it Comments 5 reps without UE support, walker in front in 30 sec; then 2 other reps Gait Training Gait Activity Gait training Comments Pt gait trains 40' with his heavy wooden cane in left hand , CGA CGA to gait train without AD x2 from chair to Biodex and back x30' Inside clinic to outside car with rollator and CGA--pt requires occ cues for safety and where to go and to slow down 6MWT Comments Pt gait trains 651 feet in 6 minutes with rollator. He requires cues for where to go, to slow down and to stay on task. He presents with left foot drag occ and decreased control of walker to the right occ. He has decreased attention occ and starts to talk. One sitting rest break and cues to back up to the chair with rollator, lock it and reach back for the chair. Cues for sit to stand similarly. PT-OP-T Assessment and Plan Start: 07/30/20 12:24 Freq: Status: Active Protocol: Document 08/05/20 09:03 MB (Rec: 08/05/20 09:20 MB [id number]) Physical Therapy Assessment Rehab Potential Rehabilitation Potential Fair Evaluation Complexity Number of Personal Factors/Comorbidities 1-2 Number of Body Systems Impaired 3 Clinical Presentation at Evaluation Unstable Impairments Impairments Activity Tolerance,Balance, Functional Activities, Functional Mobility,Gait,Pain, Posture,Strength Other Impairments Personal factors include decreased short-term memory. Body systems affected include cardiopulmonary, neurological, cognitive and musculoskeletal . His glioblastoma is recurring and growing per and so his clinical presentation is unstable. Other Concerns Fall Risk Yes Goals 4 Fdc Goal (LTG) Pt will perform HEP with superv to improve functional strength, safety, gait and balance by 10/01/20. LTG Duration 8 weeks 3 Fdc Goal (LTG) Pt will gait train at least 1200 feet in 6 minutes with LRAD to improve community ambulation and decrease fall risk by 10/01/20. LTG Duration 8 weeks 2 Digital Analyst Goal (LTG) Pt will perform at least 10 reps sit to bleaching machine operator 30 sec without UE support to demonstrate improved functional strength of LEs by 10/01/20. LTG Duration 8 weeks 1 Digital Analyst Goal (LTG) Pt will perform WNLs on Tinetti with use of LRAD to decrease fall risk by 10/01/20. LTG Duration 8 weeks Assessment Summary Assessment Pt is pleasant and agreeable to try Biodex today, gait training and sit to stands. He is motivated to increase exercise and mobility. He con' t to present with decreased safety awareness and attention to task, especially with talking with activities. Con't gait and exercise progression . Pt requires increased time for exercise education for home. Physical Therapy Plan Frequency and Duration Frequency of Treatment 2x/wk to tolerance Duration of Treatment 8 weeks Plan of Care Start Date 08/01/20 Plan of Care End Date 10/01/20 Therapeutic Interventions Therapeutic Interventions Balance Training,Canalithic Repositioning,Coordination Training,Gait Training,Home Exercise Program,Manual Therapy,Neuromuscular Re- education,Patient/Caregiver Education,Self-Care/Home Management,Therapeutic Activities,Therapeutic Exercises Modalities Cold Pack/Ice Massage,Hot Packs Next Visit Focus/Plan Next Note Type Treatment Note Next Visit Plan Teach Buteyko breathing, repeat 6MWT, sitting LE strengthening with bands and a balance exercise
--- NOTE | 2020-08-13 09:58 | PT.OTN ---
Current Diagnoses Malignant neoplasm of brain, unspecified (08/13/20) Physical Therapy Treatment Note PT-OP-A Visit Information Start: 07/30/20 12:24 Freq: Status: Active Protocol: Document 08/13/20 09:12 MB (Rec: 08/13/20 09:37 MB [id number]) Out-Patient Physical Therapy Visit Information Visit Information Visit Type Treatment Note Visit Note Pt late to appointment Visit Start Time 09:12 Visit Stop Time 09:45 Total Visit Minutes 33 Visit Number 4 PT-OP-B Current Condition Start: 07/30/20 12:24 Freq: Status: Active Protocol: Document 08/01/20 10:29 MB (Rec: 08/01/20 10:50 MB [id number]) Current Condition History of Current Condition Onset Date February 2019 Current Complaints Imbalance History of Current Condition Pt and reports seizures 02/20/2019 and pt was transported to the hospital and was found to have right sided frontotemporal glioblastoma. He underwent craniotomies Feb 2019 and 2019 . states that the mass is growing. He will have another treatment soon. Pt underwent double bypass and heart valve surgery in 2017. He underwent left ureter surgery in 2019. PMH includes DM, blood infection, PE 2018, HAs over surgical area, and and pt did not fill out history form and extensive history is not available in EMR. Pt reports history of blacking out, at least once this year after getting COVID shot. He reports occ light-headedness and dizziness. Pt carries cane in his right hand. Pt and report that pt is weak and imbalanced. He states, I have to think to think. states that he has trouble focusing on projects. She reports his short-term is off. Prior Treatments and Tests PT for cardiac rehab Treatment Goals Patient/Caregiver Goals To be able to walk again without feeling like I am going to fall immediately PT-OP-C Subjective Start: 07/30/20 12:24 Freq: Status: Active Protocol: Document 08/13/20 09:12 MB (Rec: 08/13/20 09:37 MB [id number]) OP-PT Subjective Patient Comments Patient Comments Pt states that he con't with headache. He has been unable to get a rollator from [employer] as they have not had anyone return one. Pt reports some LBP today. He reports doing a leg swinging exercise that PT is not familiar with. He was also cleaning the shower. He arrives without AD. PT-OP-D Balance Start: 07/30/20 12:24 Freq: Status: Active Protocol: Document 08/01/20 10:29 MB (Rec: 08/01/20 16:02 MB [id number]) OP-PT Balance Assessment Sitting Balance Static Sitting Balance Ability Good Dynamic Sitting Balance Ability Good Standing Balance Static Standing Balance Ability Good Dynamic Standing Balance Ability Fair Balance Tests Romberg Romberg EO 30 sec and EC 10 sec and then pt reopens eyes Menendez Fall Scale Copyright Permission PT-OP-G Mobility & Gait Start: 07/30/20 12:24 Freq: Status: Active Protocol: Document 08/01/20 10:29 MB (Rec: 08/01/20 16:02 MB [id number]) OP Gait Assessment Gait Gait Assistance Required: Standby Assistance Distance (Feet) 50 Able to Maintain Weight Bearing Status Yes During Gait Assistive Devices Assistive Device None,Straight Cane Orthotic/Prosthetic Devices or Brace: No Gait Deviations General Gait Pattern Decreased Stride Length,Flexed Trunk,Wide Based Gait Factors Limiting Gait Function Factors Limiting Gait Function Decreased Strength,Poor Balance Comments Gait Comments Pt arrives carrying heavy straight cane in right hand and is able to gait train with superv with this. He gait trains 50'. During assessment, he gait trains with SBA from PT and presents with wide DEVON, decreased toe off and occ increased proximal weakness with either leg with different steps. PT-OP-H Neuro Start: 07/30/20 12:24 Freq: Status: Active Protocol: Document 08/01/20 10:29 MB (Rec: 08/01/20 16:02 MB [id number]) Sensation Evaluation Gross Sensation Gross Sensation WNL Coordination Evaluation Upper Extremity Tests Right Pronation/Supination Test Normal Performance Left Pronation/Supination Test Normal Performance Lower Extremity Tests Right Foot Tapping Test Normal Performance Left Foot Tapping Test Normal Performance Vital Signs Comments Vital Signs Comments Orthostatic assessment is negative with BP and HR in LUE : supine 129/85, 73 and standing 136/87, 83 and machine not reading accurately on third reading PT-OP-K Range of Motion Start: 07/30/20 12:24 Freq: Status: Active Protocol: Document 08/01/20 10:29 MB (Rec: 08/01/20 16:02 MB [id number]) Shoulder Goniometric Range of Motion Shoulder ROM Limitations Comments B UE and LE ROM in sitting is WNLs PT-OP-M Strength Start: 07/30/20 12:24 Freq: Status: Active Protocol: Document 08/01/20 10:29 MB (Rec: 08/01/20 16:02 MB [id number]) Hip Strength Hip Manual Muscle Testing Left Flexion (L2) 3+ Fair+ Abduction 4 Good Right Flexion (L2) 3+ Fair+ Abduction 4 Good Knee Strength Knee Manual Muscle Testing Left Flexion (S2) 4 Good Extension (L3) 4 Good Right Flexion (S2) 4 Good Extension (L3) 4 Good Ankle/Foot Strength Ankle and Foot Manual Muscle Testing Left Dorsiflexion (L4) 4 Good Right Dorsiflexion (L4) 4 Good Toe Strength Toe Manual Muscle Testing Right Great Toe Extension 4 Good Left Great Toe Extension 3+ Fair+ PT-OP-Q Treatments Start: 07/30/20 12:24 Freq: Status: Active Protocol: Document 08/13/20 09:12 MB (Rec: 08/13/20 09:37 MB [id number]) Therapeutic Exercises Sitting Exercises Hamstring stretch Side bilateral Reps/Minutes 1 rep each side, 20 sec hold Pect stretch in sitting Side bilateral Comments Arms up and open, chest high QL stretch Sitting Exercise Name QL stretch arm overhead with breath Side bilateral Comments 20 sec hold with breathing through ribs Thoracic rotation stretch Sitting Exercise Name Hands across shoulders, rotate right and left Side bilateral Comments Cues to keep head in alignment with shoulders, deep breath end-range Gait Training Gait Activity Gait training Comments Gait training with rollator 100 feet out of clinic to car with superv and PT assist for rollator once at car 6MWT Comments Pt gait trains 634 feet with rollator in clockwise direction with close superv and cues for route and to keep picking up his feet, especially the left foot. Pt requires two rest breaks: one before 3' and one 25 sec before end of 6 minutes. He requires cues for stepping back to chair with walker and to lock walker and reach back for chair. PT-OP-T Assessment and Plan Start: 07/30/20 12:24 Freq: Status: Active Protocol: Document 08/13/20 09:12 MB (Rec: 08/13/20 09:37 MB [id number]) Physical Therapy Assessment Rehab Potential Rehabilitation Potential Fair Evaluation Complexity Number of Personal Factors/Comorbidities 1-2 Number of Body Systems Impaired 3 Clinical Presentation at Evaluation Unstable Impairments Impairments Activity Tolerance,Balance, Functional Activities, Functional Mobility,Gait,Pain, Posture,Strength Other Impairments Personal factors include decreased short-term memory. Body systems affected include cardiopulmonary, neurological, cognitive and musculoskeletal . His glioblastoma is recurring and growing per and so his clinical presentation is unstable. Other Concerns Fall Risk Yes Goals 4 Electrotype Finisher Goal (LTG) Pt will perform HEP with superv to improve functional strength, safety, gait and balance by 10/01/20. LTG Duration 8 weeks 3 Electrotype Finisher Goal (LTG) Pt will gait train at least 1200 feet in 6 minutes with LRAD to improve community ambulation and decrease fall risk by 10/01/20. LTG Duration 8 weeks 2 Electrotype Finisher Goal (LTG) Pt will perform at least 10 reps sit to nursing home assistant administrator 30 sec without UE support to demonstrate improved functional strength of LEs by 10/01/20. LTG Duration 8 weeks 1 Usp Goal (LTG) Pt will perform WNLs on Tinetti with use of LRAD to decrease fall risk by 10/01/20. LTG Duration 8 weeks Assessment Summary Assessment Pt is late to appointment today and his affect is decreased today. He is less talkative and con't to have trouble remembering the 6MWT route despite walking several times. He requires cues for safe transfers and close superv for gait. He fatigues quickly today. PT does communicate with at end of treatment when assisting pt back to van that PT does not want pt to walk into clinic without AD and without personal assist. Recommend she arrive into clinic with pt if he does not have AD. Physical Therapy Plan Frequency and Duration Frequency of Treatment 2x/wk to tolerance Duration of Treatment 8 weeks Plan of Care Start Date 08/01/20 Plan of Care End Date 10/01/20 Therapeutic Interventions Therapeutic Interventions Balance Training,Canalithic Repositioning,Coordination Training,Gait Training,Home Exercise Program,Manual Therapy,Neuromuscular Re- education,Patient/Caregiver Education,Self-Care/Home Management,Therapeutic Activities,Therapeutic Exercises Modalities Cold Pack/Ice Massage,Hot Packs Next Visit Focus/Plan Next Note Type Treatment Note Next Visit Plan Cervical exercises, consider Buteyko breathing, repeat 6MWT , sitting LE strengthening with bands and a balance exercise
--- NOTE | 2020-08-16 09:46 | PT.OTN ---
Current Diagnoses Malignant neoplasm of brain, unspecified (08/16/20) Physical Therapy Treatment Note PT-OP-A Visit Information Start: 07/30/20 12:24 Freq: Status: Active Protocol: Document 08/16/20 09:00 MB (Rec: 08/16/20 09:34 MB [id number]) Out-Patient Physical Therapy Visit Information Visit Information Visit Type Treatment Note Visit Start Time 09:00 Visit Stop Time 09:45 Total Visit Minutes 45 Visit Number 5 PT-OP-B Current Condition Start: 07/30/20 12:24 Freq: Status: Active Protocol: Document 08/01/20 10:29 MB (Rec: 08/01/20 10:50 MB [id number]) Current Condition History of Current Condition Onset Date February 2019 Current Complaints Imbalance History of Current Condition Pt and reports seizures 02/20/2019 and pt was transported to the hospital and was found to have right sided frontotemporal glioblastoma. He underwent craniotomies Feb 2019 and 2019 . states that the mass is growing. He will have another treatment soon. Pt underwent double bypass and heart valve surgery in 2017. He underwent left ureter surgery in 2019. PMH includes DM, blood infection, PE 2017, HAs over surgical area, and and pt did not fill out history form and extensive history is not available in EMR. Pt reports history of blacking out, at least once this year after getting COVID shot. He reports occ light-headedness and dizziness. Pt carries cane in his right hand. Pt and report that pt is weak and imbalanced. He states, I have to think to think. states that he has trouble focusing on projects. She reports his short-term is off. Prior Treatments and Tests PT for cardiac rehab Treatment Goals Patient/Caregiver Goals To be able to walk again without feeling like I am going to fall immediately PT-OP-C Subjective Start: 07/30/20 12:24 Freq: Status: Active Protocol: Document 08/16/20 09:00 MB (Rec: 08/16/20 09:34 MB [id number]) OP-PT Subjective Patient Comments Patient Comments Pt states that his back pain is kicking his butt today. PT-OP-D Balance Start: 07/30/20 12:24 Freq: Status: Active Protocol: Document 08/01/20 10:29 MB (Rec: 08/01/20 16:02 MB [id number]) OP-PT Balance Assessment Sitting Balance Static Sitting Balance Ability Good Dynamic Sitting Balance Ability Good Standing Balance Static Standing Balance Ability Good Dynamic Standing Balance Ability Fair Balance Tests Romberg Romberg EO 30 sec and EC 10 sec and then pt reopens eyes Menendez Fall Scale Copyright Permission PT-OP-G Mobility & Gait Start: 07/30/20 12:24 Freq: Status: Active Protocol: Document 08/01/20 10:29 MB (Rec: 08/01/20 16:02 MB [id number]) OP Gait Assessment Gait Gait Assistance Required: Standby Assistance Distance (Feet) 50 Able to Maintain Weight Bearing Status Yes During Gait Assistive Devices Assistive Device None,Straight Cane Orthotic/Prosthetic Devices or Brace: No Gait Deviations General Gait Pattern Decreased Stride Length,Flexed Trunk,Wide Based Gait Factors Limiting Gait Function Factors Limiting Gait Function Decreased Strength,Poor Balance Comments Gait Comments Pt arrives carrying heavy straight cane in right hand and is able to gait train with superv with this. He gait trains 50'. During assessment, he gait trains with SBA from PT and presents with wide DEVON, decreased toe off and occ increased proximal weakness with either leg with different steps. PT-OP-H Neuro Start: 07/30/20 12:24 Freq: Status: Active Protocol: Document 08/01/20 10:29 MB (Rec: 08/01/20 16:02 MB [id number]) Sensation Evaluation Gross Sensation Gross Sensation WNL Coordination Evaluation Upper Extremity Tests Right Pronation/Supination Test Normal Performance Left Pronation/Supination Test Normal Performance Lower Extremity Tests Right Foot Tapping Test Normal Performance Left Foot Tapping Test Normal Performance Vital Signs Comments Vital Signs Comments Orthostatic assessment is negative with BP and HR in LUE : supine 129/85, 73 and standing 136/87, 83 and machine not reading accurately on third reading PT-OP-K Range of Motion Start: 07/30/20 12:24 Freq: Status: Active Protocol: Document 08/01/20 10:29 MB (Rec: 08/01/20 16:02 MB [id number]) Shoulder Goniometric Range of Motion Shoulder ROM Limitations Comments B UE and LE ROM in sitting is WNLs PT-OP-M Strength Start: 07/30/20 12:24 Freq: Status: Active Protocol: Document 08/01/20 10:29 MB (Rec: 08/01/20 16:02 MB [id number]) Hip Strength Hip Manual Muscle Testing Left Flexion (L2) 3+ Fair+ Abduction 4 Good Right Flexion (L2) 3+ Fair+ Abduction 4 Good Knee Strength Knee Manual Muscle Testing Left Flexion (S2) 4 Good Extension (L3) 4 Good Right Flexion (S2) 4 Good Extension (L3) 4 Good Ankle/Foot Strength Ankle and Foot Manual Muscle Testing Left Dorsiflexion (L4) 4 Good Right Dorsiflexion (L4) 4 Good Toe Strength Toe Manual Muscle Testing Right Great Toe Extension 4 Good Left Great Toe Extension 3+ Fair+ PT-OP-Q Treatments Start: 07/30/20 12:24 Freq: Status: Active Protocol: Document 08/16/20 09:00 MB (Rec: 08/16/20 09:34 MB [id number]) Cardio Equipment Recumbent Elliptical (Power-One) Duration (Minutes) 10 Resistance 2 Other UE and LE use Gait Training Gait Activity Gait training Comments Multiple gait trials with his new borrowed rollator from [employer], cues for backing up to recumbent stepper, for direction with rollator, 50'x1 , 45'x1, 200'x1 with superv Manual Therapy Treatment Other Other Manual Treatments STM cervical and thoracic paraspinals, grade III PA mobs thoracic spine, B scapular mobs, STM glutes B sides, B hip rotators PT-OP-T Assessment and Plan Start: 07/30/20 12:24 Freq: Status: Active Protocol: Document 08/16/20 09:00 MB (Rec: 08/16/20 09:34 MB [id number]) Physical Therapy Assessment Rehab Potential Rehabilitation Potential Fair Evaluation Complexity Number of Personal Factors/Comorbidities 1-2 Number of Body Systems Impaired 3 Clinical Presentation at Evaluation Unstable Impairments Impairments Activity Tolerance,Balance, Functional Activities, Functional Mobility,Gait,Pain, Posture,Strength Other Impairments Personal factors include decreased short-term memory. Body systems affected include cardiopulmonary, neurological, cognitive and musculoskeletal . His glioblastoma is recurring and growing per and so his clinical presentation is unstable. Other Concerns Fall Risk Yes Goals 4 Longterm Goal (LTG) Pt will perform HEP with superv to improve functional strength, safety, gait and balance by 10/01/20. LTG Duration 8 weeks 3 Loin Puller Goal (LTG) Pt will gait train at least 1200 feet in 6 minutes with LRAD to improve community ambulation and decrease fall risk by 10/01/20. LTG Duration 8 weeks 2 Loin Puller Goal (LTG) Pt will perform at least 10 reps sit to blasting cap assembler 30 sec without UE support to demonstrate improved functional strength of LEs by 10/01/20. LTG Duration 8 weeks 1 Longterm Goal (LTG) Pt will perform WNLs on Tinetti with use of LRAD to decrease fall risk by 10/01/20. LTG Duration 8 weeks Assessment Summary Assessment Pt con't to require cues for safe walker use with transfers . He tolerates manual work well today. Will ed in self- massage next treatment date. Physical Therapy Plan Frequency and Duration Frequency of Treatment 2x/wk to tolerance Duration of Treatment 8 weeks Plan of Care Start Date 08/01/20 Plan of Care End Date 10/01/20 Therapeutic Interventions Therapeutic Interventions Balance Training,Canalithic Repositioning,Coordination Training,Gait Training,Home Exercise Program,Manual Therapy,Neuromuscular Re- education,Patient/Caregiver Education,Self-Care/Home Management,Therapeutic Activities,Therapeutic Exercises Modalities Cold Pack/Ice Massage,Hot Packs Next Visit Focus/Plan Next Note Type Treatment Note Next Visit Plan Consider thoracic mobility in sitting, racquet ball massage, consider Buteyko breathing, repeat 6MWT, sitting LE strengthening with bands and a balance exercise
--- NOTE | 2020-08-20 09:46 | PT.OTN ---
Current Diagnoses Malignant neoplasm of brain, unspecified (08/20/20) Physical Therapy Treatment Note PT-OP-A Visit Information Start: 07/30/20 12:24 Freq: Status: Active Protocol: Document 08/20/20 09:00 MB (Rec: 08/20/20 09:46 MB [id number]) Out-Patient Physical Therapy Visit Information Visit Information Visit Type Treatment Note Visit Start Time 09:00 Visit Stop Time 09:40 Total Visit Minutes 40 Visit Number 6 PT-OP-B Current Condition Start: 07/30/20 12:24 Freq: Status: Active Protocol: Document 08/01/20 10:29 MB (Rec: 08/01/20 10:50 MB [id number]) Current Condition History of Current Condition Onset Date February 2019 Current Complaints Imbalance History of Current Condition Pt and reports seizures 02/20/2019 and pt was transported to the hospital and was found to have right sided frontotemporal glioblastoma. He underwent craniotomies Feb 2019 and 2019 . states that the mass is growing. He will have another treatment soon. Pt underwent double bypass and heart valve surgery in 2017. He underwent left ureter surgery in 2019. PMH includes DM, blood infection, PE 2017, HAs over surgical area, and and pt did not fill out history form and extensive history is not available in EMR. Pt reports history of blacking out, at least once this year after getting COVID shot. He reports occ light-headedness and dizziness. Pt carries cane in his right hand. Pt and report that pt is weak and imbalanced. He states, I have to think to think. states that he has trouble focusing on projects. She reports his short-term is off. Prior Treatments and Tests PT for cardiac rehab Treatment Goals Patient/Caregiver Goals To be able to walk again without feeling like I am going to fall immediately PT-OP-C Subjective Start: 07/30/20 12:24 Freq: Status: Active Protocol: Document 08/20/20 09:00 MB (Rec: 08/20/20 09:46 MB [id number]) OP-PT Subjective Patient Comments Patient Comments Pt states that his head and neck are not as bad as they are sometimes. He states that he has been thinking about his son and brother who are both disabled veterans. PT-OP-D Balance Start: 07/30/20 12:24 Freq: Status: Active Protocol: Document 08/01/20 10:29 MB (Rec: 08/01/20 16:02 MB [id number]) OP-PT Balance Assessment Sitting Balance Static Sitting Balance Ability Good Dynamic Sitting Balance Ability Good Standing Balance Static Standing Balance Ability Good Dynamic Standing Balance Ability Fair Balance Tests Romberg Romberg EO 30 sec and EC 10 sec and then pt reopens eyes Menendez Fall Scale Copyright Permission PT-OP-G Mobility & Gait Start: 07/30/20 12:24 Freq: Status: Active Protocol: Document 08/01/20 10:29 MB (Rec: 08/01/20 16:02 MB [id number]) OP Gait Assessment Gait Gait Assistance Required: Standby Assistance Distance (Feet) 50 Able to Maintain Weight Bearing Status Yes During Gait Assistive Devices Assistive Device None,Straight Cane Orthotic/Prosthetic Devices or Brace: No Gait Deviations General Gait Pattern Decreased Stride Length,Flexed Trunk,Wide Based Gait Factors Limiting Gait Function Factors Limiting Gait Function Decreased Strength,Poor Balance Comments Gait Comments Pt arrives carrying heavy straight cane in right hand and is able to gait train with superv with this. He gait trains 50'. During assessment, he gait trains with SBA from PT and presents with wide DEVON, decreased toe off and occ increased proximal weakness with either leg with different steps. PT-OP-H Neuro Start: 07/30/20 12:24 Freq: Status: Active Protocol: Document 08/01/20 10:29 MB (Rec: 08/01/20 16:02 MB [id number]) Sensation Evaluation Gross Sensation Gross Sensation WNL Coordination Evaluation Upper Extremity Tests Right Pronation/Supination Test Normal Performance Left Pronation/Supination Test Normal Performance Lower Extremity Tests Right Foot Tapping Test Normal Performance Left Foot Tapping Test Normal Performance Vital Signs Comments Vital Signs Comments Orthostatic assessment is negative with BP and HR in LUE : supine 129/85, 73 and standing 136/87, 83 and machine not reading accurately on third reading PT-OP-K Range of Motion Start: 07/30/20 12:24 Freq: Status: Active Protocol: Document 08/01/20 10:29 MB (Rec: 08/01/20 16:02 MB [id number]) Shoulder Goniometric Range of Motion Shoulder ROM Limitations Comments B UE and LE ROM in sitting is WNLs PT-OP-M Strength Start: 07/30/20 12:24 Freq: Status: Active Protocol: Document 08/01/20 10:29 MB (Rec: 08/01/20 16:02 MB [id number]) Hip Strength Hip Manual Muscle Testing Left Flexion (L2) 3+ Fair+ Abduction 4 Good Right Flexion (L2) 3+ Fair+ Abduction 4 Good Knee Strength Knee Manual Muscle Testing Left Flexion (S2) 4 Good Extension (L3) 4 Good Right Flexion (S2) 4 Good Extension (L3) 4 Good Ankle/Foot Strength Ankle and Foot Manual Muscle Testing Left Dorsiflexion (L4) 4 Good Right Dorsiflexion (L4) 4 Good Toe Strength Toe Manual Muscle Testing Right Great Toe Extension 4 Good Left Great Toe Extension 3+ Fair+ PT-OP-Q Treatments Start: 07/30/20 12:24 Freq: Status: Active Protocol: Document 08/20/20 09:00 MB (Rec: 08/20/20 09:46 MB [id number]) Cardio Equipment Recumbent Elliptical ([employer] [place]) Duration (Minutes) 10 Resistance 2 Other B UE and LE use Therapeutic Exercises Standing Exercises Racquet ball massage Standing Exercise Name Intrascapular massage, glutes Side bilateral Comments Pt is able to maintain balance , rollator is in front of him Gait Training Gait Activity Gait training Comments Multiple trials of gait with his rollator and pt con't to require cues for safety for transfers, superv for gait: 50 'x1, 40'x1, 20'x2 into bathroom and back and pt is able to manage in bathroom I for urinating in standing. Pt reports LE fatigue after use of recumbent stepper, standing for massage and short gait trials and sitting rest break taken. 6MWT Comments Pt gait trains 515 feet in 6 minutes with rollator, requiring standby to CGA assist d/t two episodes of scuffing left foot, pt getting tired and so gait trained out to car at end of test. PT-OP-T Assessment and Plan Start: 07/30/20 12:24 Freq: Status: Active Protocol: Document 08/20/20 09:00 MB (Rec: 08/20/20 09:46 MB [id number]) Physical Therapy Assessment Rehab Potential Rehabilitation Potential Fair Evaluation Complexity Number of Personal Factors/Comorbidities 1-2 Number of Body Systems Impaired 3 Clinical Presentation at Evaluation Unstable Impairments Impairments Activity Tolerance,Balance, Functional Activities, Functional Mobility,Gait,Pain, Posture,Strength Other Impairments Personal factors include decreased short-term memory. Body systems affected include cardiopulmonary, neurological, cognitive and musculoskeletal . His glioblastoma is recurring and growing per and so his clinical presentation is unstable. Other Concerns Fall Risk Yes Goals 4 Penitentiary Goal (LTG) Pt will perform HEP with superv to improve functional strength, safety, gait and balance by 10/01/20. LTG Duration 8 weeks 3 Video Games Mechanic Goal (LTG) Pt will gait train at least 1200 feet in 6 minutes with LRAD to improve community ambulation and decrease fall risk by 10/01/20. LTG Duration 8 weeks 2 Video Games Mechanic Goal (LTG) Pt will perform at least 10 reps sit to art coordinator 30 sec without UE support to demonstrate improved functional strength of LEs by 10/01/20. LTG Duration 8 weeks 1 Video Games Mechanic Goal (LTG) Pt will perform WNLs on Tinetti with use of LRAD to decrease fall risk by 10/01/20. LTG Duration 8 weeks Assessment Summary Assessment Pt con't to require cues for safe transfers, backing up to seat, locking walker, then reaching back for seat and sittting. He does not tend to to this. Ed in self-massage with racquet ball today and pt is able to perform with cues. states that pt is not performing exercises at home and she does not feel that she needs to do exercises with him as they have 12/10 today. Will further ed both pt and in importance of con't exercises at home to improve strength, balance and gait. ? understanding of both of them Physical Therapy Plan Frequency and Duration Frequency of Treatment 2x/wk to tolerance Duration of Treatment 8 weeks Plan of Care Start Date 08/01/20 Plan of Care End Date 10/01/20 Therapeutic Interventions Therapeutic Interventions Balance Training,Canalithic Repositioning,Coordination Training,Gait Training,Home Exercise Program,Manual Therapy,Neuromuscular Re- education,Patient/Caregiver Education,Self-Care/Home Management,Therapeutic Activities,Therapeutic Exercises Modalities Cold Pack/Ice Massage,Hot Packs Next Visit Focus/Plan Next Note Type Treatment Note Next Visit Plan Consider [place] breathing, repeat 6MWT, sitting LE strengthening with bands and a balance exercise, ongoing gait training
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
--- NOTE | 2020-09-04 08:20 | PT.OPDS ---
Current Diagnoses Malignant neoplasm of brain, unspecified (08/23/20) Visit Care Team Role Provider Type Kostas Ybarra MD Attending Provider Physician Primary Care Provider Referring Provider Specialty: Family Practice Address: [address] [place] [address], [address], [place], [address] Email: [email or web address] Visit Number Visit Number 7 Discharge Summary PT-OP-B Current Condition Start: 07/30/20 12:24 Freq: Status: Active Protocol: Document 08/01/20 10:29 MB (Rec: 08/01/20 10:50 MB [id number]) Current Condition History of Current Condition Onset Date February 2019 Current Complaints Imbalance History of Current Condition Pt and reports seizures 02/20/2019 and pt was transported to the hospital and was found to have right sided frontotemporal glioblastoma. He underwent craniotomies Feb 2019 and 2019 . states that the mass is growing. He will have another treatment soon. Pt underwent double bypass and heart valve surgery in 2017. He underwent left ureter surgery in 2019. PMH includes DM, blood infection, PE 2017, HAs over surgical area, and and pt did not fill out history form and extensive history is not available in EMR. Pt reports history of blacking out, at least once this year after getting COVID shot. He reports occ light-headedness and dizziness. Pt carries cane in his right hand. Pt and report that pt is weak and imbalanced. He states, I have to think to think. states that he has trouble focusing on projects. She reports his short-term is off. Prior Treatments and Tests PT for cardiac rehab Treatment Goals Patient/Caregiver Goals To be able to walk again without feeling like I am going to fall immediately PT-OP-C Subjective Start: 07/30/20 12:24 Freq: Status: Active Protocol: Document 08/23/20 09:01 MB (Rec: 08/23/20 09:35 MB [id number]) OP-PT Subjective Patient Comments Patient Comments Pt states that he has himself a headache and neck ache. He admits to not doing his exercises at home when asked. PT-OP-D Balance Start: 07/30/20 12:24 Freq: Status: Active Protocol: Document 08/01/20 10:29 MB (Rec: 08/01/20 16:02 MB [id number]) OP-PT Balance Assessment Sitting Balance Static Sitting Balance Ability Good Dynamic Sitting Balance Ability Good Standing Balance Static Standing Balance Ability Good Dynamic Standing Balance Ability Fair Balance Tests Romberg Romberg EO 30 sec and EC 10 sec and then pt reopens eyes Menendez Fall Scale Copyright Permission PT-OP-G Mobility & Gait Start: 07/30/20 12:24 Freq: Status: Active Protocol: Document 08/01/20 10:29 MB (Rec: 08/01/20 16:02 MB [id number]) OP Gait Assessment Gait Gait Assistance Required: Standby Assistance Distance (Feet) 50 Able to Maintain Weight Bearing Status Yes During Gait Assistive Devices Assistive Device None,Straight Cane Orthotic/Prosthetic Devices or Brace: No Gait Deviations General Gait Pattern Decreased Stride Length,Flexed Trunk,Wide Based Gait Factors Limiting Gait Function Factors Limiting Gait Function Decreased Strength,Poor Balance Comments Gait Comments Pt arrives carrying heavy straight cane in right hand and is able to gait train with superv with this. He gait trains 50'. During assessment, he gait trains with SBA from PT and presents with wide DEVON, decreased toe off and occ increased proximal weakness with either leg with different steps. PT-OP-H Neuro Start: 07/30/20 12:24 Freq: Status: Active Protocol: Document 08/01/20 10:29 MB (Rec: 08/01/20 16:02 MB [id number]) Sensation Evaluation Gross Sensation Gross Sensation WNL Coordination Evaluation Upper Extremity Tests Right Pronation/Supination Test Normal Performance Left Pronation/Supination Test Normal Performance Lower Extremity Tests Right Foot Tapping Test Normal Performance Left Foot Tapping Test Normal Performance Vital Signs Comments Vital Signs Comments Orthostatic assessment is negative with BP and HR in LUE : supine 129/85, 73 and standing 136/87, 83 and machine not reading accurately on third reading PT-OP-K Range of Motion Start: 07/30/20 12:24 Freq: Status: Active Protocol: Document 08/01/20 10:29 MB (Rec: 08/01/20 16:02 MB [id number]) Shoulder Goniometric Range of Motion Shoulder ROM Limitations Comments B UE and LE ROM in sitting is WNLs PT-OP-M Strength Start: 07/30/20 12:24 Freq: Status: Active Protocol: Document 08/01/20 10:29 MB (Rec: 08/01/20 16:02 MB [id number]) Hip Strength Hip Manual Muscle Testing Left Flexion (L2) 3+ Fair+ Abduction 4 Good Right Flexion (L2) 3+ Fair+ Abduction 4 Good Knee Strength Knee Manual Muscle Testing Left Flexion (S2) 4 Good Extension (L3) 4 Good Right Flexion (S2) 4 Good Extension (L3) 4 Good Ankle/Foot Strength Ankle and Foot Manual Muscle Testing Left Dorsiflexion (L4) 4 Good Right Dorsiflexion (L4) 4 Good Toe Strength Toe Manual Muscle Testing Right Great Toe Extension 4 Good Left Great Toe Extension 3+ Fair+ PT-OP-T Assessment and Plan Start: 07/30/20 12:24 Freq: Status: Active Protocol: Document 09/04/20 08:19 MB (Rec: 09/04/20 08:20 MB [id number]) Physical Therapy Plan Discharge Physical Therapy Discharge Reasons Patient Request Discharge Comments Pt's calls to cancel pt's remaining appointments d/t his headaches are getting really bad in setting of glioblastoma. Will d/c PT.
== END 2020-09-04 09:53 | disposition home or self-care (01) ==
LOC: PHYS 09:00
PROVIDERS: PCP Family Medicine; Referring Provider Family Medicine; Visit Provider Family Medicine
DX: C71.9 Malignant neoplasm of brain, unspecified (principal)
CPT/HCPCS: 97110; 97116; 97140; 97162; 97535

== ENCOUNTER → 2020-10-25 13:29 | Outpatient (CLI) | payer OTHER, SELFPAY ==
--- NOTE | 2020-10-25 | DI.RAD.S_ITS ---
PROCEDURE: XR CHEST 2V INDICATIONS: Dysnea with Exertion TECHNIQUE: 2 views of the chest were acquired. COMPARISON: [facility], CR, XR CHEST 1V, 07/17/2019, 15:02. [facility], CR, XR CHEST 2V, 07/12/2019, 12:56. FINDINGS: Surgical changes and devices: None. Lungs and pleura: Lungs are clear. No pleural effusions or pneumothorax. Mediastinum: Mediastinal contours are normal. Heart size is normal. Bones and chest wall: No suspicious bony abnormalities. Soft tissues appear unremarkable. IMPRESSION: Normal for age, source of current dyspnea with exertion symptoms is not seen. Dictated by: Marko Amaral M.D. on 10/25/2020 at 14:48 Approved by: Marko Amaral M.D. on 10/25/2020 at 14:48
[2020-10-25 14:29] LABS: Alanine Aminotransferase 44 IU/L (<50); Albumin Globulin Ratio 1.5 (1.0-2.8); Alkaline Phosphatase 56 U/L (38-126); Aspartate Aminotransferase 37 IU/L (17-59); BUN Creatinine Ratio 26.3 (6-22); Bilirubin Total 0.7 mg/dL (0.2-1.3); Blood Urea Nitrogen 26 mg/dL (9-20); Calcium 9.5 mg/dL (8.4-10.2); Carbon Dioxide 28 mmol/L (22-32); Chloride 103 mmol/L (98-107); Estimated Glomerular Filt Rate > 60.0 mL/min (>60); Globulin 2.7 g/dL (1.7-4.1); Glucose 167 mg/dL (80-110); HEMOLYSIS < 15 (0-50); Potassium 4.3 mmol/L (3.4-5.1); Sodium 137 mmol/L (137-145); Total Protein 6.7 g/dL (6.3-8.2)
[2020-10-25 14:35] LABS: NT-proBNP (BNP-Adult 18+) 140 pg/mL (<125)
== END ==
PROVIDERS: PCP Family Medicine; Referring Provider Family Medicine; Visit Provider Family Medicine
DX: R06.09 Other forms of dyspnea (principal)
CPT/HCPCS: 36415; 71046; 80053; 83880